=== PATIENT | male | born 1970 | race Caucasian/White ===

== ENCOUNTER → 2017-11-23 | Outpatient (REF) | payer BC | LOC: M CARPUL 07:22 | DX: Z02.89 Encounter for other administrative examinations (principal) ==

== ENCOUNTER 2018-01-18 17:22 | Emergency (ER) | payer BC ==
[2018-01-18] MEDS: KETOROLAC 30 MG/ML VIAL (J1885) IV (17:45)
[2018-01-18] MEDS: ONDANSETRON 4MG/2ML VIAL (J2405) IV (17:48)
[2018-01-18 18:02] LABS: BASO # 0.1 10^3/uL (0.0-0.2); BASO % 1.3 % (0.0-1.0); EOS # 0.1 10^3/uL (0.0-0.50); EOS % 0.6 % (0.0-3.0); HEMOGLOBIN 16.7 g/dl (13.5-17.5); IMMATURE GRANULOCYTE % 0.3 % (0-3.0); LYMPH % 20.2 % (24.0-44.0); MEAN CORPUSCULAR HEMOGLOBIN 29.2 pg (27.0-33.0); MEAN CORPUSCULAR HGB CONC 34.8 g/dl (32.0-36.5); MEAN CORPUSCULAR VOLUME 83.9 fl (80.0-96.0); MONO # 0.5 10^3/uL (0.0-0.8); MONO % 5.2 % (0.0-5.0); NEUTROPHILS # 7.2 10^3/uL (1.8-7.7); NEUTROPHILS % 72.4 % (36.0-66.0); PLATELET COUNT, AUTOMATED 270 10^3/uL (150-450); RED BLOOD COUNT 5.72 10^6/uL (4.30-6.10); RED CELL DISTRIBUTION WIDTH 12.5 % (11.5-14.5); WHITE BLOOD COUNT 9.9 10^3/uL (4.0-10.0)
[2018-01-18 18:26] LABS: ANION GAP 8 MEQ/L (8-16); BLOOD UREA NITROGEN 16 MG/DL (7-18); C REACTIVE PROTEIN QUANTITATIV < 0.30 MG/DL (0.00-0.30); CALCIUM LEVEL 9.1 MG/DL (8.5-10.1); CARBON DIOXIDE LEVEL 26 MEQ/L (21-32); CHLORIDE LEVEL 105 MEQ/L (98-107); GLOMERULAR FILTRATION RATE > 60.0 (>60); GLUCOSE, FASTING 145 MG/DL (70-100); POTASSIUM SERUM 4.2 MEQ/L (3.5-5.1); SODIUM LEVEL 139 MEQ/L (136-145)
[2018-01-18 18:29] LABS: AMORPHOUS SEDIMENT RFX SMALL (NEGATIVE); KETONE, URINE AUTO RFX NEGATIVE (NEGATIVE); LEUKOCYTE ESTERASE UR AUTO RFX NEGATIVE (NEGATIVE); MUCUS, URINE RFX SMALL (NEGATIVE); NITRITE, URINE AUTO RFX NEGATIVE (NEGATIVE); RBC, URINE AUTO RFX TNTC /HPF (0-3); SPECIFIC GRAVITY UR AUTO RFX 1.024 (1.002-1.035); SQUAM EPITHELIAL CELL UR AURFX 1 /HPF (0-6); WBC, URINE AUTO RFX 1 /HPF (0-3)
[2018-01-18] MEDS: PERCOCET 5MG/325MG TAB PO (19:12)
== END 2018-01-18 19:20 | disposition home or self-care (01) ==
LOC: M ED 17:22
DX: N20.1 Calculus of ureter (principal); N13.2 Hydronephrosis with renal and ureteral calculous obstruction; R10.9 Unspecified abdominal pain; R11.2 Nausea with vomiting, unspecified; I10 Essential (primary) hypertension; Z87.442 Personal history of urinary calculi; F17.200 Nicotine dependence, unspecified, uncomplicated; Z79.899 Other long term (current) drug therapy
CPT/HCPCS: J2405

== ENCOUNTER → 2018-12-06 | Outpatient (REF) ==
[~2018-12-06] MED LIST: FLOM0.4C39 PO; KETO10TAB PO; LISI40TA PO; METO1TAB87 PO; PERC5TAB12 PO; ZOFR4TAB14 PO
--- NOTE | 2018-12-06 14:37 | PFTRPT ---
Height: 70.00 Inches Weight: 200.00 Lbs BSA: 2.09 Diagnosis: [employer]EE [employer] DATE OF PROCEDURE: 12/06/2018 ORDERED BY: Pamela Foss Spirometry: Study of excellent technical quality. Forced vital capacity normal. FEV1 in proportion. Obstructive index is, therefore, normal. Flow Volume Loop: Expiratory limb of the flow volume loop is normal. Lung Volumes: Total lung capacity normal. Residual volume is generally in proportion. Diffusing Capacity: Diffusing capacity mildly reduced but is appropriate for alveolar volume. Hemoglobin: No hemoglobin available for correction. Airway Mechanics: Airway resistance is normal. IMPRESSION: Mild diffusing capacity impairment requires clinical correlation. MTDD
== END ==
LOC: M CARPUL 08:40 → EDSTATUS 09:00
PROVIDERS: ATTEND Nurse Practitioner Adult Health
DX: Z02.89 Encounter for other administrative examinations (principal)

== ENCOUNTER 2019-02-16 01:30 | Day surgery (SDC) | payer BC ==
[~2019-02-16] VITALS: Ht 177.8 cm; Wt 92.3 kg
[2019-02-16 02:06] LABS: BASO # 0.1 10^3/uL (0.0-0.2); BASO % 1.1 % (0.0-1.0); EOS # 0.2 10^3/uL (0.0-0.50); HEMATOCRIT 48.4 % (42.0-52.0); HEMOGLOBIN 16.3 g/dl (13.5-17.5); LYMPH # 2.2 10^3/uL (1.5-4.5); LYMPH % 26.1 % (24.0-44.0); MEAN CORPUSCULAR HEMOGLOBIN 28.9 pg (27.0-33.0); MEAN CORPUSCULAR HGB CONC 33.7 g/dl (32.0-36.5); MEAN CORPUSCULAR VOLUME 85.8 fl (80.0-96.0); MONO # 0.6 10^3/uL (0.0-0.8); MONO % 6.5 % (0.0-5.0); NEUTROPHILS # 5.4 10^3/uL (1.8-7.7); NEUTROPHILS % 63.9 % (36.0-66.0); PLATELET COUNT, AUTOMATED 244 10^3/uL (150-450); RED BLOOD COUNT 5.64 10^6/uL (4.30-6.10); WHITE BLOOD COUNT 8.5 10^3/uL (4.0-10.0)
[2019-02-16] MEDS ORDERED: NS 1,000 ML IV ONE (02:15)
[2019-02-16] MEDS ORDERED: METOCLOPRAMIDE INJ 10MG/2ML VIAL (J2765) IV ONE (02:15)
[2019-02-16] MEDS ORDERED: TAMSULOSIN 0.4 MG CAP PO ONE (02:15)
[2019-02-16] MEDS ORDERED: KETOROLAC 30 MG/ML VIAL (J1885) IV ONE (02:15)
[2019-02-16 02:24] LABS: BLOOD UREA NITROGEN 12 MG/DL (7-18); CALCIUM LEVEL 8.5 MG/DL (8.5-10.1); CARBON DIOXIDE LEVEL 27 MEQ/L (21-32); CHLORIDE LEVEL 104 MEQ/L (98-107); CREATININE FOR GFR 1.07 MG/DL (0.70-1.30); GLOMERULAR FILTRATION RATE > 60.0 (>60); GLUCOSE, FASTING 175 MG/DL (70-100); SODIUM LEVEL 138 MEQ/L (136-145)
--- NOTE | 2019-02-16 02:54 | REPVR ---
EXAM: CT Abdomen and Pelvis Without Contrast EXAM DATE/TIME: 02/16/2019 1:44 AM CLINICAL HISTORY: 48 years old, male; Abdominal pain; Flank; Patient HX: Left side pain; Additional info: Flank pain/hx kidney stones TECHNIQUE: Imaging protocol: Axial computed tomography images of the abdomen and pelvis without contrast. Coronal and sagittal reformatted images were created and reviewed. Radiation optimization: All CT scans at this facility use at least one of these dose optimization techniques: automated exposure control; mA and/or kV adjustment per patient size (includes targeted exams where dose is matched to clinical indication); or iterative reconstruction. COMPARISON: CT ABD PELVIS W/O CONTRAST 01/18/2018 5:45 PM FINDINGS: Lungs: No suspicious mass or airspace process in the visualized lung bases. ABDOMEN: Liver: Noncontrast liver shows no obvious lesion. Gallbladder and bile ducts: Gallbladder is present and shows no evidence of gallstone. Pancreas: Noncontrast pancreas shows no obvious mass or adjacent fluid. Spleen: Noncontrast spleen shows no obvious focal deformity. Adrenals: Adrenal glands are normal in appearance. Kidneys and ureters: Kidneys demonstrate nonobstructive calculi. Left kidney demonstrates perinephric stranding and moderate hydronephrosis secondary to a large, 8 x 5 mm left UPJ stone proximally. Distal to this, the left ureter is normal in caliber. Stomach and bowel: No evidence of small bowel obstruction. No evidence of acute diverticulitis. Appendix: Normal caliber appendix is identified, with no adjacent inflammation. PELVIS: Bladder: Bladder appears normal. Reproductive: Unremarkable as visualized. ABDOMEN and PELVIS: Intraperitoneal space: Limited evaluation without enteric or IV contrast. No pneumoperitoneum. No abnormal pelvic mass. Bones/joints: Bony structures show no acute fracture or destructive process. Soft tissues: Unremarkable. Vasculature: Atherosclerotic change present in the aorta, without aneurysm. Lymph nodes: No enlarged lymph nodes. IMPRESSION: 1. Moderate left hydronephrosis secondary to a large 8 x 5 mm proximal left ureter stone at the left UPJ level. 2. Bilateral nonobstructive renal calculi Electronically signed by: Micky Rankin On 02/16/2019 02:53:24 AM
[2019-02-16] MEDS ORDERED: DILUENT IV ONE (04:15)
[2019-02-16] MEDS ORDERED: NACL IV ONE (04:15)
[2019-02-16] MEDS ORDERED: KETAMINE IV ONE (04:15)
[2019-02-16] MEDS ORDERED: CONRAY-60 60% 50ML VIAL (Q9961) As Ordered ONE (08:24)
--- NOTE | 2019-02-16 09:21 | SMCUROLCON ---
Urology Consultation General Date of Consultation 02/16/19 Reason For Consultation This patient is seen for Flank Pain. History of Present Illness This is a 48 y/o M w/ a PMH significant for HTN and kidney stones, presenting to the ER early this morning w/ acute onset left flank and abd pain. The patient n oted that this started yesterday evening and became increasingly worse. He has had nausea and vomiting but denies fevers or chills. A noncontrast CT A/P was obtained in the ER and was notable for an 8mm obstructing left UPJ stone as well as additional b/l nonobstructing stones. The ER has had difficulty controlling his pain. He denies dysuria or hematuria. His WBC count is normal and he has o nly 1 WBC/hpf on his UA. Past Medical History Medical History kidney stones, HTN Surgical Hstory ESWL approximately 10 years ago Medications Current Medications Current Medications Home Med (Med Rec Complete!) ASDIRECTED XX ; Start 02/16/19 at 03:45; Stop 02/16/19 at 03:46; Status DC Allergies Allergies: Coded Allergies: No Known Allergies (Unverified , 02/16/19) Review of Systems Constitutional: Denies: Fever, Chills, Sweats, Weakness, Malaise Skin: Denies: Rash, Lesions, Breakdown, Nail Changes Pulmonary: Denies: Dyspnea, Cough Cardiovascular: Denies Chest Pain, Denies Palpitations Gastrointestinal: Reports: Nausea, Vomiting, Abdominal Pain (LLQ) Genitourinary: Denies: Dysuria, Frequency, Incontinence, Hematuria Musculoskeletal: Reports: Back Pain (left flank pain) Neurological: Denies: Weakness, Numbness, Incoordination, Change in Speech Psych: Reports: Mood Normal Physical Examination General Exam: Alert, Cooperative, No Acute Distress Chest Exam: Clear to auscultation Heart Exam: Rate Normal Abdomen Exam: Soft, Tenderness (LLQ) Skin Exam: Nl turgor and temperature Neuro Exam: Normal Speech Psych Exam: Mental status NL, Mood NL Vital Signs/I&O Vital Signs Date Time Temp Pulse Resp B/P (MAP) Pulse Ox O2 Delivery O2 Flow Rate FiO2 02/16/19 08:22 97.5 92 19 173/94 (120) 97 Room Air I&O- Last 24 Hours up to 6 AM 02/16/19 06:00 Intake Total 1018.45 ml Balance 1018.45 ml Laboratory Data 24H Labs Laboratory Tests 2 02/16/19 01:49: Immature Granulocyte % (Auto) 0.4, White Blood Count 8.5, Red Blood Count 5.64, Hemoglobin 16.3, Hematocrit 48.4, Mean Corpuscular Volume 85.8, Mean Corpuscular Hemoglobin 28.9, Mean Corpuscular Hemoglobin Concent 33.7, Red Cell Distribution Width 12.9, Platelet Count 244, Neutrophils (%) (Auto) 63.9, Lymphocytes (%) (Auto) 26.1, Monocytes (%) (Auto) 6.5H, Eosinophils (%) (Auto) 2.0, Basophils (%) (Auto) 1.1H, Neutrophils # (Auto) 5.4, Lymphocytes # (Auto) 2.2, Monocytes # (Auto) 0.6, Eosinophils # (Auto) 0.2, Basophils # (Auto) 0.1, Nucleated Red Blood Cells % (auto) 0.0, Urine Color YELLOW, Urine Appearance CLEAR, Urine pH 6.0, Urine Specific [place] 1.019, Urine Protein 1+H, Urine Glucose (UA) NEGATIVE, Urine Ketones NEGATIVE, Urine Blood 2+H, Urine Nitrite NEGATIVE, Urine Bilirubin NEGATIVE, Urine Urobilinogen 2.0H, Urine Leukocyte Esterase NEGATIVE, Urine WBC (Auto) 1, Urine RBC (Auto) 22H, Urine Hyaline Casts (Auto) 0, Urine Bacteria (Auto) NEGATIVE, Urine Squamous Epithelial Cells 0, Urine Mucus (Auto) SMALL, Urine Sperm (Auto) , Anion Gap 7L, Glomerular Filtration Rate > 60.0, Blood Urea Nitrogen 12, Creatinine 1.07, Sodium Level 138, Potassium Level 4.0, Chloride Level 104, Carbon Dioxide Level 27, Calcium Level 8.5 CBC/BMP Laboratory Tests 02/16/19 01:49 Red Blood Count 5.64, Mean Corpuscular Volume 85.8, Mean Corpuscular Hemoglobin 28.9, Mean Corpuscular Hemoglobin Concent 33.7, Red Cell Distribution Width 12.9, Neutrophils (%) (Auto) 63.9, Lymphocytes (%) (Auto) 26.1, Monocytes (%) (Auto) 6.5 H, Eosinophils (%) (Auto) 2.0, Basophils (%) (Auto) 1.1 H, Neutrophils # (Auto) 5.4, Lymphocytes # (Auto) 2.2, Monocytes # (Auto) 0.6, Eosinophils # (Auto) 0.2, Basophils # (Auto) 0.1, Calcium Level 8.5 Assessment This is a 48 y/o M w/ an 8mm obstructing left UPJ stone. Given the difficulty c ontrolling his pain I recommended that we take him to the OR today for cystoscopy, left ureteroscopy w/ laser lithotripsy, and left ureteral stent placement. After a discussion of the risks and benefits of the procedure, informed consent was signed. Plan - informed consent signed for cystoscopy, left ureteroscopy w/ laser lithotripsy, and left ureteral stent placement - NPO - 2g ancef IV OCOR - likely discharge home after the procedure assuming his pain is better control led DAVID CANO MD February 16, 2019 09:21
[2019-02-16] MEDS ORDERED: ceFAZolin 2 GM/D5W 50 ML IV BAG (J0690 PER 500MG) As Ordered ONE (09:31)
[2019-02-16] MEDS ORDERED: MIDAZOLAM INJ 2 MG/2 ML VIAL (J2250) As Ordered ONE (09:51)
[2019-02-16] MEDS ORDERED: ONDANSETRON 4MG/2ML VIAL (J2405) As Ordered ONE ×2 (09:51→11:11)
[2019-02-16] MEDS ORDERED: LIDOCAINE 2% INJ 100 MG/5 ML SDV (FOR ANES.) As Ordered ONE (09:51)
[2019-02-16] MEDS ORDERED: PROPOFOL 200 MG/20 ML VIAL As Ordered ONE (09:51)
[2019-02-16] MEDS ORDERED: dexameTHASONE 4 MG/ML 1ML VIAL (J1100) As Ordered ONE (09:51)
[2019-02-16] MEDS ORDERED: ROCURONIUM BROMIDE 50 MG/5 ML VIAL As Ordered ONE (09:51)
[2019-02-16] MEDS ORDERED: fentaNYL 100 MCG/2 ML INJECTION (J3010) As Ordered ONE (09:51)
[2019-02-16] MEDS ORDERED: GLYCOPYRROLATE INJ 0.2 MG/ML 2 ML VIAL As Ordered ONE (10:17)
[2019-02-16] MEDS ORDERED: NEOSTIGMINE 10 MG/10 ML VIAL (J2710) As Ordered ONE (10:17)
[2019-02-16] MEDS ORDERED: ALBUTEROL SULFATE 2.5 MG/0.5 ML INH NEB SOLN As Ordered ONE (11:11)
[2019-02-16] MEDS ORDERED: fentaNYL 100 MCG/2 ML INJECTION (J3010) IV PRN (11:15)
[2019-02-16] MEDS ORDERED: ALBUTEROL SULFATE 2.5 MG/0.5 ML INH NEB SOLN INH ONE (11:15)
[2019-02-16] MEDS ORDERED: ONDANSETRON 4MG/2ML VIAL (J2405) IV PRN (11:15)
[2019-02-16] MEDS ORDERED: LR 1,000 ML IV SCH (11:15)
[2019-02-16] MEDS ORDERED: PERCOCET 5MG/325MG TAB PO PRN ×2 (11:15)
--- NOTE | 2019-02-16 11:18 | REP ---
Retrograde ureterogram: Three views. History: Stent placement. 12 seconds of fluoroscopy time is reported. Findings: A sequence of three last image hold fluoroscopically obtained spot radiographs of the abdomen document ureteral cannulation, contrast injection, and double pigtail stent placement. No laterality markers are visible. Electronically Signed by Neeraj Ochoa MD 02/16/2019 12:36 P
--- NOTE | 2019-02-16 11:36 | RO ---
DATE OF PROCEDURE: 02/16/2019 PREPROCEDURE DIAGNOSIS: Left kidney stones. POSTPROCEDURE DIAGNOSIS: Left kidney stones. PROCEDURE: Cystoscopy, left ureteroscopy with laser lithotripsy and basket extraction of stones, left retrograde pyelogram with intraoperative interpretation of images, left ureteral stent placement. SURGEON: Dr. Otf Tompkins INDUSTRIAL BOILERMAKER: None. ANESTHESIA: General. OPERATIVE INDICATIONS: This is a 48-year-old male who presented to the emergency room with severe left flank pain and was found to have an obstructing 8 mm left ureteropelvic junction stone as well as smaller stone inside the left kidney. He was brought to the operating room today for the above listed procedures. DESCRIPTION OF PROCEDURE: The patient was brought to the operating room where general anesthesia was induced. Prophylactic antibiotics were infused. He was then placed in dorsal lithotomy position and prepped and draped in the usual sterile fashion. A rigid cystoscope was then inserted into the urethral meatus and advanced into the bladder. A guidewire was advanced up the left collecting system. I then advanced the ureteral access sheath over the wire and then went up the access sheath with a flexible ureteroscope. The left kidney was thoroughly examined. Of note, the 8 mm stone was seen at this point pushed into the renal pelvis. He also had a small stone in the left kidney. The 8 mm stone was then fragmented into smaller pieces using a 272 micron laser fiber. At this point, all fragments were removed using a basket. Once done removing all the fragments, there were no fragments remaining except for very tiny stone debris that should pass without any difficulty. A retrograde pyelogram was then performed and was notable for moderate left hydronephrosis and no extravasation. I then withdrew the ureteroscope along with access sheath and no additional stones were seen within the ureter. I then utilized the wire to advance a 6 Armenian x 22-32 cm JJ ureteral stent up into the left collecting system. The wire was then removed and there were adequate curls of the stent in the left renal pelvis and in the bladder. The bladder was then emptied of all fluid and this marked the conclusion of the procedure. The patient was then taken out of the dorsal lithotomy position, awakened from anesthesia and transported to the recovery room in stable condition. Estimated blood loss: 5 mL. Complications: None. Specimen: Kidney stone fragments. Plan: The patient will followup in the clinic in a few weeks for possible stent removal of note, the patient also had an approximate 5-6 mm nonobstructing right kidney stone and he might benefit from an extracorporeal shockwave lithotripsy for that. We can discuss that possible procedure when he follows up in the clinic. VITA
[2019-02-16] MEDS ORDERED: LABETALOL HCL 100 MG/20 ML VIAL As Ordered ONE (11:39)
[2019-02-16] MEDS: LABETALOL HCL 100 MG/20 ML VIAL IV PRN ×5 (11:40→12:10)
[2019-02-16] MEDS ORDERED: METOCLOPRAMIDE INJ 10MG/2ML VIAL (J2765) IV PRN (11:45)
[2019-02-16] MEDS ORDERED: PROMETHAZINE INJ 25 MG/ML VIAL (J2550) As Ordered ONE (12:05)
[2019-02-16] MEDS ORDERED: PROMETHAZINE INJ 25 MG/ML VIAL (J2550) IV ONE (12:30)
[2019-02-16] MEDS ORDERED: METOPROLOL TART 25 MG TABLET PO ONE (12:30)
[2019-02-16] MEDS ORDERED: LISINOPRIL 40 MG TAB PO ONE (12:30)
[2019-02-16 13:32] VITALS: BP 139/76
[2019-02-22 14:11] LABS: CA Oxalate Dihy 25 % (.); COMMENT Note: (.); Ca Ox Monohydrate 45 % (.)
== END 2019-02-16 14:10 | disposition home or self-care (01) ==
LOC: M ED 01:30 → M SDC 09:12
PROVIDERS: ATTEND Urology
DX: N20.0 Calculus of kidney (principal); N20.1 Calculus of ureter; I10 Essential (primary) hypertension; F17.210 Nicotine dependence, cigarettes, uncomplicated; Z79.899 Other long term (current) drug therapy
CPT/HCPCS: 52356; 74176; 74420; 80048; 81001; 82360; 85025; 88300; 96361; 96375; 99285; C1769; C1894; C2617; J0690; J1100; J1885; J2250; J2405; J2710; J2765; J3010; Q9961

== ENCOUNTER 2019-05-19 05:50 | Emergency (ER) | payer BC ==
[~2019-05-19] VITALS: Ht 177.8 cm; Wt 93.2 kg
[~2019-05-19 05:50] MED LIST changes: +ADVI100T PO; +DRIS50003 PO; +LOPR1TAB6 PO
[2019-05-19] MEDS ORDERED: NS 1,000 ML IV ONE (06:15)
[2019-05-19] MEDS ORDERED: ONDANSETRON 4MG/2ML VIAL (J2405) IV ONE (06:30)
[2019-05-19] MEDS ORDERED: KETOROLAC 30 MG/ML VIAL (J1885) IV ONE (06:30)
[2019-05-19 06:35] LABS: BASO # 0.1 10^3/uL (0.0-0.2); BASO % 0.9 % (0.0-1.0); EOS # 0.1 10^3/uL (0.0-0.50); EOS % 0.8 % (0.0-3.0); HEMATOCRIT 48.6 % (42.0-52.0); HEMOGLOBIN 16.8 g/dl (13.5-17.5); LYMPH # 2.2 10^3/uL (1.5-4.5); LYMPH % 21.4 % (24.0-44.0); MEAN CORPUSCULAR HEMOGLOBIN 29.8 pg (27.0-33.0); MEAN CORPUSCULAR HGB CONC 34.6 g/dl (32.0-36.5); MEAN CORPUSCULAR VOLUME 86.3 fl (80.0-96.0); MONO # 0.6 10^3/uL (0.0-0.8); MONO % 6.1 % (0.0-5.0); NEUTROPHILS # 7.3 10^3/uL (1.8-7.7); NEUTROPHILS % 70.5 % (36.0-66.0); PLATELET COUNT, AUTOMATED 252 10^3/uL (150-450); RED BLOOD COUNT 5.63 10^6/uL (4.30-6.10); WHITE BLOOD COUNT 10.3 10^3/uL (4.0-10.0)
[2019-05-19 07:11] LABS: ALBUMIN 3.9 GM/DL (3.2-5.2); ALT/SGPT 32 U/L (12-78); AMYLASE 39 U/L (25-115); BILIRUBIN,TOTAL 0.8 MG/DL (0.2-1.0); BLOOD UREA NITROGEN 16 MG/DL (7-18); CALCIUM LEVEL 9.1 MG/DL (8.5-10.1); CARBON DIOXIDE LEVEL 25 MEQ/L (21-32); CHLORIDE LEVEL 104 MEQ/L (98-107); CREATININE FOR GFR 1.03 MG/DL (0.70-1.30); GLOMERULAR FILTRATION RATE > 60.0 (>60); GLUCOSE, FASTING 160 MG/DL (70-100); LIPASE 123 U/L (73-393); POTASSIUM SERUM 4.2 MEQ/L (3.5-5.1); SODIUM LEVEL 138 MEQ/L (136-145)
[2019-05-19 08:11] LABS: APPEARANCE, URINE CLEAR (CLEAR); BACTERIA, URINE AUTO NEGATIVE (NEGATIVE); BILIRUBIN, URINE AUTO NEGATIVE (NEGATIVE); BLOOD, URINE BLOOD 1+ (NEGATIVE); COLOR, URINE YELLOW (YELLOW); GLUCOSE, URINE (UA) AUTO NEGATIVE (NEGATIVE); KETONE, URINE AUTO NEGATIVE (NEGATIVE); LEUKOCYTE ESTERASE, URINE AUTO NEGATIVE (NEGATIVE); MUCUS, URINE SMALL (NEGATIVE); NITRITE, URINE AUTO NEGATIVE (NEGATIVE); PROTEIN, URINE AUTO NEGATIVE (NEGATIVE); RBC, URINE AUTO 10 /HPF (0-3); SPECIFIC GRAVITY URINE AUTO 1.016 (1.002-1.035); SQUAMOUS EPITHELIAL CELL UR AU 0 /HPF (0-6); UROBILINOGEN, URINE AUTO 0.2 mg/dL (0.0-2.0); WBC, URINE AUTO 2 /HPF (0-3)
[2019-05-19] MEDS ORDERED: MORPHINE 2 MG/ML 1ML SYRINGE (J2270) IV ONE (09:15)
--- NOTE | 2019-05-19 10:44 | REP ---
CT of the abdomen pelvis without IV and oral contrast for renal calculus: Comparison is 02/16/2019. The patient complains of right lower quadrant pain. There is a 4 ml calculus in the urinary bladder posterolaterally on the right as an interval change. There is no right hydronephrosis or hydroureter. This calculus may have recently passed into the bladder. There are at least four nonobstructive right renal calculi measuring up to 6 mm. There is left hydronephrosis and hydroureter, perinephric stranding. However, there is no left ureteral calculus. The previous left ureteral calculus is no longer identified. There is a nonobstructive left renal calculus measuring 3 mm. The persisting hydronephrosis and hydroureter may be from mucosal edema or fibrosis of the distal ureter from previous calculus disease. There is a small left pleural effusion. There is a small focal zone of atelectasis in the right lower lobe. The hepatic parenchyma, gallbladder, pancreas, spleen, adrenals, abdominal aorta, bowel and mesentery are unremarkable. Pelvis: The appendix is unremarkable. The pelvic bowel loops are unremarkable. There is no ascites or adenopathy. Impression: There is a calculus in the bladder posterolaterally on the right, possibly recently passed into the bladder. There is no right hydronephrosis or hydroureter. There is persisting left hydronephrosis and hydroureter without a left ureteral calculus. This may be from edema or fibrosis of the distal left ureter, possibly from previous calculus disease. Small left pleural effusion. Small focal zone of atelectasis in the right lower lobe. Electronically Signed by Ubaldo Hicks MD 05/19/2019 10:36 A
[2019-05-19 11:18] VITALS: BP 178/107
--- NOTE | 2019-05-19 21:22 | ECGEPIP ---
[facility] - ED Test Date: 2019-05-19 Pat Name: BANG JOHNSON Department: Room: - Gender: Male Equipment Maintenance Supervisor: sara : 1970 Requested By: Annelise Mohamud RD MECHANICAL ENGINEER Order Number: [id number] Reading MD: Kathia Jaquez Measurements Intervals [place] Rate: 74 P: -10 MS: 195 QRS: 5 QRSD: 108 T: 35 QT: 369 QTc: 411 Interpretive Statements SINUS RHYTHM INFERIOR INFARCT, AGE INDETERMINATE NO PRIOR Electronically Signed on 05-19-2019 21:22:06 EDT by Kathia Jaquez
--- NOTE | 2019-05-22 07:23 | ED PDOC ---
Post-Departure Follow-Up akash pereira faxed formal report of ct abd/p for fu Yuliya Pelaez MD May 22, 2019 07:23
--- NOTE | 2019-06-07 13:44 | ED PDOC ---
Post-Departure Follow-Up certiifed letter sent to pt regarding message from pcp office. Per artificial cherry maker per office "if pt wants to follow up he needs to make an appt and reestablish w us." please let pt know he needs to fu . pt needs fu for ct abd/p film he had during ed visit. Yuliya Wilson MD Jun 07, 2019 13:44
== END 2019-05-19 11:34 | disposition home or self-care (01) ==
LOC: M ED 05:50
DX: N20.1 Calculus of ureter (principal); N13.39 Other hydronephrosis; N13.4 Hydroureter; R11.2 Nausea with vomiting, unspecified; K59.00 Constipation, unspecified; Z87.442 Personal history of urinary calculi; F17.200 Nicotine dependence, unspecified, uncomplicated; Z79.899 Other long term (current) drug therapy
CPT/HCPCS: 74176; 80053; 81001; 82150; 83690; 85025; 85379; 93005; 96374; 96375; 99284; J1885; J2270; J2405

== ENCOUNTER → 2019-12-08 | Outpatient (REF) ==
--- NOTE | 2019-12-08 15:03 | PFTRPT ---
Site: [facility], [address] [place] [address], [id number] ID: [id number] Name: BANG JOHNSON Visit Date: 12/08/2019 Second ID: [id number] Referring Doctor: Noemí Foss Reviewing Doctor: Agustin Granda MD Automotive Metalsmith: Marly ANTHONY RRT Age: 49 : 1970 Sex: Male Race: Height: 70.00 Inches Weight: 206.00 Lbs BSA: 2.11 Order IDs: [id number] Requested Test(s): <RESP-PFT.DLCO> Diagnosis: [employer]EE [employer] test meet the ATS standards for acceptability and repeatability. Review Status: Not Reviewed Pre-Bronch Post-Bronch Pred Actual %Pred Actual %Chng SPIROMETRY FVC (L) 5.06 3.88 76 FEV1 (L) 3.92 3.07 78 FEV1/FVC (%) 78 79 101 FEF 25% (L/sec) 7.90 6.72 85 FEF 50% (L/sec) 5.01 4.13 82 FEF 75% (L/sec) 1.70 0.98 57 FEF 25-75% (L/sec) 3.47 2.92 84 FEF Max (L/sec) 9.82 7.19 73 FIVC (L) 4.01 FIF 50% (L/sec) 4.98 4.40 88 FIF Max (L/sec) 4.54 MVV (L/min) 153 130 85 Expiratory Time (sec) 7.12 Back Extrap Vol (L) 0.23 Time To FEFmax (sec) 0.179 LUNG VOLUMES SVC (L) 4.92 4.10 83 IC (L) 3.41 3.05 89 ERV (L) 1.51 1.05 69 TGV (L) 3.55 3.67 103 RV (Pleth) (L) 2.04 2.62 128 TLC (Pleth) (L) 6.96 6.72 96 RV/TLC (Pleth) (%) 30 39 130 DIFFUSION DLCOunc (ml/min/mmHg) 30.69 28.28 92 DL/VA (ml/min/mmHg/L) 4.41 4.50 102 VA (L) 6.96 6.28 90 BHT (sec) 9.58 IVC (L) 4.10 TLC (SB) (L) 6.43 AIRWAYS RESISTANCE Raw (cmH2O/L/s) 1.45 1.05 72 Gaw (L/s/cmH2O) 1.03 0.96 93 sRaw (cmH2O*s) 4.76 4.12 86 sGaw (1/cmH2O*s) 0.20 0.24 121
== END ==
LOC: M CARPUL 14:42 → EDSTATUS 15:00
PROVIDERS: ATTEND Nurse Practitioner Adult Health
DX: Z02.89 Encounter for other administrative examinations (principal)

== ENCOUNTER 2020-08-10 03:26 | Emergency (ER) | payer BC ==
[~2020-08-10] VITALS: Ht 177.8 cm; Wt 93.3 kg
[2020-08-10 05:09] LABS: BASO # 0.1 10^3/uL (0.0-0.2); BASO % 0.8 % (0.0-1.0); EOS % 0.3 % (0.0-3.0); HEMATOCRIT 48.5 % (42.0-52.0); HEMOGLOBIN 15.8 g/dl (13.5-17.5); LYMPH # 1.1 10^3/uL (1.5-5.0); LYMPH % 10.5 % (24.0-44.0); MEAN CORPUSCULAR HEMOGLOBIN 27.9 pg (27.0-33.0); MEAN CORPUSCULAR HGB CONC 32.6 g/dl (32.0-36.5); MEAN CORPUSCULAR VOLUME 85.5 fl (80.0-96.0); MONO # 0.6 10^3/uL (0.0-0.8); MONO % 5.8 % (0.0-5.0); NEUTROPHILS # 8.9 10^3/uL (1.5-8.5); NEUTROPHILS % 81.5 % (36.0-66.0); PLATELET COUNT, AUTOMATED 272 10^3/uL (150-450); RED BLOOD COUNT 5.67 10^6/uL (4.30-6.10); WHITE BLOOD COUNT 10.9 10^3/uL (4.0-10.0)
[2020-08-10 05:39] LABS: ALBUMIN 3.9 GM/DL (3.2-5.2); BILIRUBIN,DIRECT 0.2 MG/DL (0.0-0.2); BILIRUBIN,TOTAL 0.5 MG/DL (0.2-1.0); TOTAL PROTEIN 7.1 GM/DL (6.4-8.2)
[2020-08-10] MEDS ORDERED: KETOROLAC 30 MG/ML 1ML VIAL IV ONE (06:00)
[2020-08-10] MEDS ORDERED: ONDANSETRON 4MG/2ML VIAL IV ONE (06:00)
[2020-08-10] MEDS ORDERED: NS 1,000 ML IV ONE (06:00)
--- NOTE | 2020-08-10 06:24 | REPVR ---
PROCEDURE INFORMATION: Exam: CT Abdomen And Pelvis Without Contrast Exam date and time: 08/10/2020 5:56 AM Age: 49 years old Clinical indication: Abdominal pain; Flank; Left; Additional info: Left flank pain, HX of stones TECHNIQUE: Imaging protocol: Computed tomography of the abdomen and pelvis without contrast. Radiation optimization: All CT scans at this facility use at least one of these dose optimization techniques: automated exposure control; mA and/or kV adjustment per patient size (includes targeted exams where dose is matched to clinical indication); or iterative reconstruction. COMPARISON: CT ABD PELVIS W/O CONTRAST 05/19/2019 10:15 AM FINDINGS: Liver: Normal. No mass. Gallbladder and bile ducts: Normal. No calcified stones. No ductal dilation. Pancreas: Normal. No ductal dilation. Spleen: Normal. No splenomegaly. Adrenal glands: Normal. No mass. Kidneys and ureters: There are multiple right renal cysts the largest measuring 1.9 centimetres. There are right renal stones the largest measuring 7 mm. There is a 6 mm stone in the right UPJ but without hydronephrosis. There is a 1.8 cm left UPJ obstructing stone with moderate proximal hydronephrosis. There is a large left lower renal pole stone measuring 2.1 centimetres. There is left perinephric stranding and edema. Stomach and bowel: Unremarkable. No obstruction. No mucosal thickening. Appendix: No evidence of appendicitis. Intraperitoneal space: Unremarkable. No free air. No significant fluid collection. Vasculature: There is mild aortic and iliac mural calcifications. Lymph nodes: Unremarkable. No enlarged lymph nodes. Urinary bladder: Unremarkable as visualized. Reproductive: Unremarkable as visualized. Bones/joints: Unremarkable. No acute fracture. Soft tissues: Unremarkable. IMPRESSION: 1. 1.8 cm left UPJ obstructing stone with moderate proximal hydronephrosis and perinephric edema. Underlying infection cannot be excluded. 2. 6 mm right UPJ stone without proximal hydronephrosis. Bilateral renal stones the largest on the right measures 7 mm in the largest on the left measures 2.1 centimetres. 3. Multiple right renal cysts. COMMENTS: Consistent with the [employer]'s Incidental Findings Committee white paper (J Am Gerber Radiol 2018): Any incidental renal lesion less than 1 cm or classified as too small to characterize, or any incidental cystic renal lesion characterized as simple-appearing, is likely benign. No follow-up imaging is recommended for these lesions per consensus recommendations based on imaging criteria. Electronically signed by: Heri Carey On 08/10/2020 06:24:16 AM
[2020-08-10 06:39] LABS: HEMOGLOBIN A1c 7.5 %
[2020-08-10] MEDS ORDERED: CIPROFLOXACIN 500MG TABLET PO ONE (06:45)
[2020-08-10] MEDS ORDERED: PERCOCET 5MG/325MG TAB PO ONE (06:45)
[2020-08-10] MEDS ORDERED: PERC5TAB12 PO (08:10)
[2020-08-10] MEDS ORDERED: ONDA4TAB6 PO (08:10)
[2020-08-10] MEDS ORDERED: KETO10TAB PO (08:10)
[2020-08-10] MEDS ORDERED: CIPR-249 PO (08:11)
[2020-08-10 08:24] VITALS: BP 172/115
== END 2020-08-10 08:28 | disposition home or self-care (01) ==
LOC: M ED 03:26
DX: N13.2 Hydronephrosis with renal and ureteral calculous obstruction (principal); F17.200 Nicotine dependence, unspecified, uncomplicated; Z79.891 Long term (current) use of opiate analgesic; Z79.899 Other long term (current) drug therapy
CPT/HCPCS: 74176; 80047; 80076; 81001; 83036; 83690; 85025; 96361; 96374; 96375; 99284; J1885; J2405

== ENCOUNTER 2020-08-13 18:02 | Inpatient (IN) | payer BC ==
[~2020-08-13] VITALS: Ht 177.8 cm; Wt 91.6 kg
[~2020-08-13 18:02] MED LIST changes: +CIPR-249 PO; +ONDA4TAB6 PO
[2020-08-13] MEDS ORDERED: ONDANSETRON 4MG/2ML VIAL IV ONE (18:45)
[2020-08-13] MEDS ORDERED: MORPHINE 4 MG/ML 1ML VIAL/SYRINGE (J2270) IV ONE (18:45)
[2020-08-13] MEDS ORDERED: NS 1,000 ML IV ONE (18:45)
[2020-08-13] MEDS ORDERED: KETO10TAB PO (19:26)
[2020-08-13] MEDS ORDERED: OXYC1TAB23 PO (19:26)
[2020-08-13] MEDS ORDERED: CIPR500T3 PO (19:26)
[2020-08-13] MEDS ORDERED: ONDA4TAB6 PO (19:26)
[2020-08-13 19:28] LABS: BASO # 0.1 10^3/uL (0.0-0.2); BASO % 0.6 % (0.0-1.0); EOS # 0.1 10^3/uL (0.0-0.5); EOS % 0.9 % (0.0-3.0); HEMATOCRIT 42.6 % (42.0-52.0); HEMOGLOBIN 14.4 g/dl (13.5-17.5); LYMPH # 1.3 10^3/uL (1.5-5.0); LYMPH % 9.6 % (24.0-44.0); MEAN CORPUSCULAR HEMOGLOBIN 28.8 pg (27.0-33.0); MEAN CORPUSCULAR HGB CONC 33.8 g/dl (32.0-36.5); MEAN CORPUSCULAR VOLUME 85.2 fl (80.0-96.0); MONO # 0.8 10^3/uL (0.0-0.8); MONO % 6.2 % (0.0-5.0); NEUTROPHILS # 10.9 10^3/uL (1.5-8.5); NEUTROPHILS % 82.2 % (36.0-66.0); PLATELET COUNT, AUTOMATED 250 10^3/uL (150-450); WHITE BLOOD COUNT 13.2 10^3/uL (4.0-10.0)
[2020-08-13 19:49] LABS: BILIRUBIN,DIRECT 0.2 MG/DL (0.0-0.2); BILIRUBIN,TOTAL 0.6 MG/DL (0.2-1.0); TOTAL PROTEIN 6.2 GM/DL (6.4-8.2)
--- NOTE | 2020-08-13 21:33 | REPVR ---
PROCEDURE INFORMATION: Exam: CT Abdomen and Pelvis without Contrast Exam date and time: 08/13/20 (9:09pm) Age: 49 years old Clinical indication: Generalized abdominal pain. Bilateral flank pain. History of stones. TECHNIQUE: Imaging protocol: Computed tomography of the abdomen and pelvis without contrast. Radiation optimization: All CT scans at this facility use at least one of these dose optimization techniques: automated exposure control; mA and/or kV adjustment per patient size (includes targeted exams where dose is matched to clinical indication); or iterative reconstruction. COMPARISON: CT ABDOMEN PELVIS of 08/10/20 CT ABDOMEN PELVIS of 02/16/19 FINDINGS: Lower lung watts: Bibasilar hypoventilatory and atelectatic changes. Liver: Normal. No solid mass. Gallbladder and bile ducts: Normal. No calcified stones. No ductal dilatation. Pancreas: Normal. No ductal dilatation. Spleen: Normal. No splenomegaly. Adrenal glands: Normal. No mass. Kidneys and ureters: Ivizfynd-mu-xyem[place] right hydronephrosis now seen (worsened right hydronephrosis). Obstructing stone (4-5 mm size) in the distal 1/3 of the right ureter (Ser. 201 - Image #116) (located 6 cm above the right UV junction). Marked left hydronephrosis again seen. Large stone (1.8 cm size) again seen at the left UP junction. Large left lower renal pole calyceal stone (1.8 cm size) remains 1.8 cm size. No distal left ureteral stone. Poorly defined hypodense lesion (12 mm size) (probable cyst) again seen posterolaterally at the right lower renal pole -- also seen 3 days ago and in January 2019. Stomach and bowel: Unremarkable. No bowel obstruction. No mucosal thickening. Appendix: A normal appendix is visualized. Intraperitoneal space: Unremarkable. No free air. No significant fluid collection. Vasculature: Unremarkable. No abdominal aortic aneurysm. Lymph nodes: Unremarkable. No enlarged lymph nodes. Urinary bladder: Unremarkable as visualized. Reproductive: Moderately enlarged prostate gland. Bones/joints: Unremarkable. No acute fracture. Soft tissues: Unremarkable. IMPRESSION: More severe right-sided right hydronephrosis at this time. The previously noted stone (4-5 mm size) at the right UP junction appears to have passed down the right ureter, now located 6 cm above the right UV junction. Additional right intrarenal stones remain. Poorly defined hypodense lesion (12 mm size) again seen at the right lower renal pole -- probable cyst. This can be confirmed with a non-emergent ultrasound, as felt warranted. Marked left hydronephrosis persists. Large stone (1.8 cm size) again seen at the left UP junction. Additional left lower renal pole calyceal stone (1.8 cm size also). No distal left ureteral stone is seen. No acute bowel pathology. Electronically signed by: Bekah Muniz On 08/13/2020 21:33:50 PM
[2020-08-13] MEDS ORDERED: CIPROFLOXACIN 400 MG in IV 1 EA IV ONE (22:00)
[2020-08-13] MEDS ORDERED: LABETALOL 100MG/20ML VIAL IV STA (22:32)
[2020-08-13] MEDS: MORPHINE 4 MG/ML 1ML VIAL/SYRINGE (J2270) IV PRN (23:04)
[2020-08-13] MEDS ORDERED: ONDANSETRON 4MG/2ML VIAL IV PRN (23:15)
[2020-08-13] MEDS ORDERED: MAALOX 30 ML SUSP *UDC PO PRN (23:15)
[2020-08-13] MEDS ORDERED: MOM 30ML SUSPENSION UDC PO PRN (23:15)
[2020-08-13] MEDS ORDERED: ACETAMINOPHEN TAB 650MG DOSE (2X325MG) PO PRN (23:15)
--- NOTE | 2020-08-13 23:27 | IPNPDOC ---
Text Note Date of Service The patient was seen on 08/13/20. VS,Paule, I+O VS, Fishbone, I+O Laboratory Tests 08/13/20 18:58 Vital Signs Date Time Temp Pulse Resp B/P (MAP) Pulse Ox O2 Delivery O2 Flow Rate FiO2 08/13/20 23:05 80 189/101 08/13/20 23:04 16 08/13/20 22:33 99 Room Air 08/13/20 18:03 97.9 PIYUSH CHISHOLM MD Aug 13, 2020 23:27
--- NOTE | 2020-08-13 23:52 | HPEPDOC ---
[facility] Medical History & Physical Date of Admission Aug 13, 2020 Date of Service: Aug 13, 2020 Primary Care Physician: Karen Buckley PA-C, LAC Attending Physician: PIYUSH CHISHOLM MD History and Physical CHIEF COMPLAINT: Bilateral back pain with anterior radiation. HISTORY OF PRESENT ILLNESS: 49-year-old gentleman history of calcium oxalate stones. CT abdomen and pelvis done in the emergency department was notable for a left- sided 2 cm stone at the UPJ junction with moderate hydronephrosis and another 2 mm stone at the lower pole of the left kidney. He was seen by urology on 08/10/20 where he was consented for cystoscopy, right ureteroscopy with laser lithotripsy and bilateral ureteral stent placement. Patient was given an prescription for percocete which he states made him more nauseas. Reports sudden onset of increasing bilateral back pain and anterior radiation into the groin approximately 1400 today. Patient did take another one of his pain medications which helped to help alleviate the pain somewhat. However, at 5:00 the pain came to managing decided to present to the ER per urology's recommendations. On presentation, the patient was found to be afebrile, heart rate 88, respiration of 18 and maintaining a saturation of 98% on room air. Patient was noted to be hypertensive with a blood pressure of 222/136 (164). Mildly elevated white count of 13.2, H&H and platelets within normal limits. Elevated glucose of 166, BUN/CR of 30/2.4, liver function within normal limits, no lactic acidosis. UA +1+ protein 3+ blood and 20 WBC and TNTC RBC.Patient was given a normal saline bolus. Pain and control with morphine and Zofran respectfully. He was given a single dose of ciprofloxacin. Urology was contacted who will see the patient in consultation. Plan for cystoscopy, right ureteroscopy with laser lithotripsy, b/l ureteral stent placement in am. Patient to be admitted for management of his hypertensive urgency and urology consultation/operative management of his bilateral hyrdonephrosis. PAST MEDICAL HISTORY: Hypertension Elevated blood glucose Nephrolithiasis PAST SURGICAL HISTORY: Lithotripsy, 2010 SOCIAL HISTORY: Patient works in maintenance at [employer]. He is a a current smoker, 1 pack per day. Denies other illicit drug use include ETOH or marijuana. Patient resides with his sister and [id number], mother and one son FAMILY HISTORY: Father: , 54 years old, diabetes, COPD, nephrolithiasis, hypertension, smoker Mother: Alive, diabetes, hypertension Siblings: Brother with hypertension and other unknown circulatory problem, choir and Coumadin ALLERGIES: Tea, hives Known drug allergies REVIEW OF SYSTEMS: CONSTITUTIONAL: Patient denies any recent fever, chills, night sweats. No substantial changes in weight or increasing fatigue HEENT: Reports a headache since presenting to the emergency department but denies any recent headache or pain, denies changes in vision, hearing. No difficulty swallowing. CARDIOVASCULAR: Has any chest pain, palpitations RESPIRATORY: No shortness of breath, cough, wheeze, dyspnea on exertion GASTROINTESTINAL: Patient is reporting bilateral back pain which radiates anteriorly towards his groin. Intermittent nausea without emesis. GENITOURINARY: Anteriorly the radiating back pain as above, reports dark-colored urine though he denies dysuria, or increased frequency/urgency SKIN: Denies any recent skin changes MUSCULOSKELETAL: No muscle aches or pains NEUROLOGICAL: Denies any vertigo, loss of consciousness, new numbness or tingling in his hands or arms or feet. He does describe some chronic left upper extremity paresthesias. HOME MEDICATIONS: Please see below. PHYSICAL EXAMINATION: VITAL SIGNS: Please see below GENERAL APPEARANCE: Patient is interviewed and examined in the emergency department. Patient was found to be resting comfortably on his bed and in no acute distress. Patient does not in discomfort. He is of stated age. He is conversant, able to provide details regarding his recent medical history. HEENT: Normocephalic, atraumatic, face is symmetric, EOMI, sclera nonicteric, no conjunctival injection, mucous members are moist CARDIOVASCULAR: Regular rate and rhythm with a normal S1 and S2 no murmur appreciated LUNGS: Good auscultation bilaterally, good air movement throughout ABDOMEN: Patient is exquisitely tender along his bilateral flanks. CVA tenderness bilaterally. EXTREMITIES: Lower extremities swelling or edema, no calf tenderness, able to move all tremors equally bilaterally NEUROLOGICAL: No dysarthria, dysphasia, cranial nerves II through XII grossly intact PSYCHIATRIC: Affect are appropriate given patient's current medical condition LABORATORY DATA: See below. IMAGING: Abdomen/pelvis CT (08/13/2020): More severe right-sided hydronephrosis. Previous noted stone 4-5 mm in size at the right UP junction appears to have passed down the right ureter, now located 6 cm above the right UP junction. Additional right intrarenal stones remain. Poorly defined hypodense lesion, 12 mm size, again seen in the right lower renal poleprobably cyst. This can be confirmed with a nonemergent ultrasound is felt warranted. Marked left hydronephrosis persists. Large stone (1.8 cm) again noted in the left UP junction. Additional left lower renal pole calyceal stone (1.8 cm) also noted. No distal left ureteral stone is seen. No acute bowel pathology. MICROBIOLOGY: Urine culture (08/13/20): Pending ASSESSMENT: Patient is a 49-year-old male with a limited past medical history which includes hypertension and nephrolithiasis, not currently on any regular medical treatment, who presents to emergency department tonight complaining of increasing bilateral back pain with anterior radiation. She was seen in the outpatient setting by urology on 08/10/20 after being diagnosed left-sided hydronephrosis and bilateral nephrolithiasis. Patient was scheduled for outpatient bilateral stent placement with lithotripsy. Patient was told that should his pain increase it was imperative that he seek emergency department evaluation as this could likely represent bilateral hydronephrosis. Indeed, this was can confirmed on recent imaging. Patient will be admitted for urologic evaluation and management. In addition, patient was also found to have elevated BP and thus also be admitted for evaluation and management of his hypertensive urgency. PLAN: #Hypertensive Urgency -Patient carries a diagnosis of hypertension though he admits he is has not been on treatment. -138/88 in the urology office on 08/10/20. Suspect pain to be contributed factor. -IV labetalol in the ED, pain control with morphine (patient does state that he is unable to tolerate oral Percocet 2/2 to N/V). -PCU/Q4H vitals/Electrolytes in am. -Pt should seek outpatient follow-up for monitoring and management of his hypertension. #Bilateral Hydronephrosis, multiple nephrolithiasis -Urology has been consulted. S/P 1 dose of ciprofloxacin in the ED. -Patient be kept NPO for surgical intervention tomorrow -Pain management with Morphine 3mg IV Q2PRN, Flomax, straining for stones #MARYANNE -2/2 to hydronephrosis -BUN/Cr of 30/2.4, increased from 16/1.0 on 08/10 -S/P 1L NS in ED, will continue gentle hydration in light of HTN CODE STATUS: FULL CODE DVT PROPHYLAXIS: TEDs/Seq DISPOSITION: Anticipate >2 night stay Vital Signs Vital Signs Date Time Temp Pulse Resp B/P (MAP) Pulse Ox O2 Delivery O2 Flow Rate FiO2 08/13/20 20:59 16 Room Air 08/13/20 19:09 83 206/108 (140) 98 08/13/20 18:03 97.9 Laboratory Data Labs 24H Laboratory Tests 2 08/13/20 18:58: Immature Granulocyte % (Auto) 0.5, Neutrophils (%) (Auto) 82.2H, Lymphocytes (%) (Auto) 9.6L, Monocytes (%) (Auto) 6.2H, Eosinophils (%) (Auto) 0.9, Basophils (%) (Auto) 0.6, Neutrophils # (Auto) 10.9H, Lymphocytes # (Auto) 1.3L, Monocytes # (Auto) 0.8, Eosinophils # (Auto) 0.1, Basophils # (Auto) 0.1, Nucleated Red Blood Cells % (auto) 0.0, Lactic Acid Level 0.6, Total Bilirubin 0.6, Direct Bilirubin 0.2, Aspartate Amino Transf (AST/SGOT) 15, Alanine Aminotransferase (ALT/SGPT) 25, Alkaline Phosphatase 98, Total Protein 6.2L, Albumin 3.0L, Albumi n/Globulin Ratio 0.9, Lipase 105, Coronavirus (COVID-19)(PCR) NEGATIVE 08/13/20 19:20: POC Glucose (Misc Panel) 166H, POC Sodium (Misc Panel) 139, POC Potassium (Misc Panel) 3.5, POC Chloride (Misc Panel) 102, POC Total CO2 (Misc Panel) 24.0, POC Blood Urea Nitrogen (Misc Panel 30H, POC Ionized Calcium (Misc Panel) 4.7, POC Creatinine (Misc Panel) 2.4H, POC Hematocrit (Misc Panel) 42.0 08/13/20 22:08: Urine Color YELLOW, Urine Appearance HAZY, Urine pH 6.0, Urine Specific [place] 1.011, Urine Protein 1+H, Urine Glucose (UA) NEGATIVE, Urine Ketones NEGATIVE, Urine Blood 3+H, Urine Nitrite NEGATIVE, Urine Bilirubin NEGATIVE, Urine Urobilinogen 0.2, Urine Leukocyte Esterase NEGATIVE, Urine WBC (Auto) 20H, Urine RBC (Auto) TNTCH, Urine Hyaline Casts (Auto) 0, Urine Bacteria (Auto) NEGATIVE, Urine Squamous Epithelial Cells 0, Urine Mucus (Auto) SMALL, Urine Sperm (Auto) CBC/BMP Laboratory Tests 08/13/20 18:58 Microbiology Microbiology 08/13/20 Urine Culture, Received Pending Home Medications Scheduled PRN Ketorolac Tromethamine (Ketorolac Tromethamine) 10 Mg Tablet, 10 MG PO Q6H PRN for PAIN Ondansetron (Ondansetron Odt) 4 Mg Tab.rapdis, 4 MG PO Q6H PRN for NAUSEA OR VOMITING Oxycodone HCl/Acetaminophen (Oxycodone-Acetaminophen 5-325) 1 Each Tablet, 1 TAB PO Q6H PRN for PAIN Allergies Coded Allergies: No Known Allergies (Unverified , 02/16/19) A-FIB/CHADSVASC A-FIB History Current/History of A-Fib/PAF?: No Current PO Anticoag Therapy: No GME ATTESTATION GME ATTESTATION My faculty preceptor for this patient encounter was physically present during the encounter and was fully available. All aspects of the patient interview, examination, medical decision making process, and medical care plan development were reviewed and approved by the faculty preceptor. The faculty preceptor is aware and concurs with the plan as stated in the body of this note and will attest to such by his/her cosignature. ATTENDING NOTE TIME OF SERVICE 1035PM is a 49 yr old smoker a hx of HTN and nephrolithiasis who presented w c/o of bilateral flank pain that radiates to the groin and was found to have bilateral obstructing kidney stones w MARYANNE, Pyelonephritis and HTN Urgency. Plan: NPO, IVF, f/u Ulytes for FENa, morphine & f/u w Urology , start amlodipine for HTN, smoking cessation education rest per 's H&P UMA TERRELL DO Aug 13, 2020 23:51 PIYUSH CHISHOLM MD Aug 14, 2020 04:35
[2020-08-14] VITALS (9 sets, daily range): BP systolic 141–178; BP diastolic 82–100
[2020-08-14] MEDS: MORPHINE 4 MG/ML 1ML VIAL/SYRINGE (J2270) IV PRN ×5 (03:33→14:27)
[2020-08-14 05:34] LABS: HEMATOCRIT 39.2 % (42.0-52.0); HEMOGLOBIN 12.7 g/dl (13.5-17.5); MEAN CORPUSCULAR HEMOGLOBIN 27.8 pg (27.0-33.0); MEAN CORPUSCULAR HGB CONC 32.4 g/dl (32.0-36.5); MEAN CORPUSCULAR VOLUME 85.8 fl (80.0-96.0); PLATELET COUNT, AUTOMATED 227 10^3/uL (150-450); RED BLOOD COUNT 4.57 10^6/uL (4.30-6.10); WHITE BLOOD COUNT 9.9 10^3/uL (4.0-10.0)
[2020-08-14] MEDS: NS 1,000 ML IV SCH ×3 (05:42→19:00)
[2020-08-14 06:00] LABS: ALBUMIN 2.7 GM/DL (3.2-5.2); BILIRUBIN,TOTAL 0.8 MG/DL (0.2-1.0); CALCIUM LEVEL 8.4 MG/DL (8.5-10.1); CREATININE FOR GFR 2.38 MG/DL (0.70-1.30); TOTAL PROTEIN 6.2 GM/DL (6.4-8.2)
[2020-08-14] MEDS ORDERED: TAMSULOSIN 0.4 MG CAP PO SCH (09:00)
[2020-08-14] MEDS ORDERED: CONRAY-60 60% 50ML VIAL (Q9961) As Ordered ONE (09:50)
--- NOTE | 2020-08-14 13:09 | SMCUROLCON ---
Urology Consultation General Date of Consultation 08/14/20 Reason For Consultation This patient is seen for Shreyas, Hypertensive Urgency, Nephrolithiasis. History of Present Illness The patient is a [49]-year-old [man] with a past medical history for [nephrolithiasis] admitted for worsening ureteral colic. He was seen in the Urology clinic last week and was found to have large stones in the left kidney and a small stone in the right proximal ureter. He was scheduled for outpatient management of the right sided stone in the coming weeks but could no longer tolerate the pain at home. He denies any fever or chills and has had no clinical infections. He has nausea despite the meds and severe pain despite the analgesics given. Medications Current Medications Current Medications Medications (Trade) Dose Ordered Sig/Kathleen Route PRN Reason Start Time Stop Time Status Last Admin Dose Admin Acetaminophen (Tylenol Tab) 650 mg Q4H PRN PO PAIN OR FEVER 08/13/20 23:15 Al Hydrox/Mg Hydrox/Simethicone (Mylanta) 30 ml DAILY PRN PO DYSPEPSIA 08/13/20 23:15 Amlodipine Besylate (Norvasc) 2.5 mg DAILY PO 08/14/20 04:30 08/14/20 04:30 Home Med (Med Rec Complete!) ASDIRECTED XX 08/13/20 19:30 08/13/20 19:28 DC Labetalol HCl (Normodyne, Trandate) 5 mg STAT STAT IV 08/13/20 22:32 08/13/20 22:33 DC 08/13/20 23:05 Magnesium Hydroxide (Milk Of Magnesia) 30 ml DAILY PRN PO CONSTIPATION 08/13/20 23:15 Morphine Sulfate (Morphine Sulfate Inj) 3 mg Q2H PRN IV pain 08/13/20 22:45 08/14/20 11:37 Ondansetron HCl (ZOFRAN INJection) 4 mg Q6H PRN IV NAUSEA 08/13/20 23:15 08/14/20 11:36 Sodium Chloride 1,000 ml @ 175 mls/hr Q5H43M IV 08/14/20 04:30 08/14/20 11:37 Tamsulosin HCl (Flomax) 0.4 mg DAILY PO 08/14/20 09:00 08/14/20 08:20 Allergies Allergies: Coded Allergies: No Known Allergies (Unverified , 02/16/19) Physical Examination Abdomen Exam: Normal Bowel Sounds (MIld lower abdominal tenderness without surgical signs) Male Exam: Normal Genital Exam Vital Signs/I&O Vital Signs Date Time Temp Pulse Resp B/P (MAP) Pulse Ox O2 Delivery O2 Flow Rate FiO2 08/14/20 11:47 18 08/14/20 07:20 99.0 69 161/92 (115) 96 Room Air I&O- Last 24 Hours up to 6 AM 08/14/20 06:00 Intake Total 1200 ml Balance 1200 ml Laboratory Data 24H Labs Laboratory Tests 2 08/13/20 18:58: Immature Granulocyte % (Auto) 0.5, Neutrophils (%) (Auto) 82.2H, Lymphocytes (%) (Auto) 9.6L, Monocytes (%) (Auto) 6.2H, Eosinophils (%) (Auto) 0.9, Basophils (%) (Auto) 0.6, Neutrophils # (Auto) 10.9H, Lymphocytes # (Auto) 1.3L, Monocytes # (Auto) 0.8, Eosinophils # (Auto) 0.1, Basophils # (Auto) 0.1, Nucleated Red Blood Cells % (auto) 0.0, Lactic Acid Level 0.6, Total Bilirubin 0.6, Direct Bilirubin 0.2, Aspartate Amino Transf (AST/SGOT) 15, Alanine Aminotransferase (ALT/SGPT) 25, Alkaline Phosphatase 98, Total Protein 6.2L, Albumin 3.0L, [place] min/Globulin Ratio 0.9, Lipase 105, Coronavirus (COVID-19)(PCR) NEGATIVE 08/13/20 19:20: POC Glucose (Misc Panel) 166H, POC Sodium (Misc Panel) 139, POC Potassium (Misc Panel) 3.5, POC Chloride (Misc Panel) 102, POC Total CO2 (Misc Panel) 24.0, POC Blood Urea Nitrogen (Misc Panel 30H, POC Ionized Calcium (Misc Panel) 4.7, POC Creatinine (Misc Panel) 2.4H, POC Hematocrit (Misc Panel) 42.0 08/13/20 22:08: Urine Color YELLOW, Urine Appearance HAZY, Urine pH 6.0, Urine Specific [place] 1.011, Urine Protein 1+H, Urine Glucose (UA) NEGATIVE, Urine Ketones NEGATIVE, Urine Blood 3+H, Urine Nitrite NEGATIVE, Urine Bilirubin NEGATIVE, Urine Urobilinogen 0.2, Urine Leukocyte Esterase NEGATIVE, Urine WBC (Auto) 20H, Urine RBC (Auto) TNTCH, Urine Hyaline Casts (Auto) 0, Urine Bacteria (Auto) NEGATIVE, Urine Squamous Epithelial Cells 0, Urine Mucus (Auto) SMALL, Urine Sperm (Auto) 08/14/20 05:17: Nucleated Red Blood Cells % (auto) 0.0, Total Bilirubin 0.8, Aspartate Amino Transf (AST/SGOT) 13, Alanine Aminotransferase (ALT/SGPT) 23, Alkaline Phosphatase 92, Total Protein 6.2L, Albumin 2.7L, Albumin/Globulin Ratio 0.8, Anion Gap 4L, Glomerular Filtration Rate 31.0L, Calcium Level 8.4L 08/14/20 06:25: Urine Random Creatinine 125.0, Urine Random Sodium 67, Urine Random Urea Nitrogen 635 CBC/BMP Laboratory Tests 08/13/20 18:58 08/14/20 05:17 Microbiology Microbiology 08/13/20 Urine Culture, Received Pending Assessment Right distal ureteral stone and left renal pelvic stones causing obstruction. He needs a PCNL on the left side and that cannot be arranged emergently but I will manage the right side urgently. Plan Right ureteroscopy with stone extraction, possible laser and bilateral ureteral stent. Risks and benefits of this have been discussed with him in detail. He understands and is willing to proceed. JAMILAH SAUL MD Aug 14, 2020 13:09
--- NOTE | 2020-08-14 14:00 | IPNPDOC ---
Text Note Date of Service The patient was seen on 08/14/20. NOTE Subjective: No any acute events overnight. Patient continues to complain of left flank pain. Objective: GENERAL APPEARANCE: NAD HEENT: no scleral icterus, no JVD, EOMI CARDIOVASCULAR: S1S2 LUNGS: CTA ABDOMEN: Left flank tenderness, bowel sounds present MUSCULOSKELETAL: no cyanosis, no swelling INTEGUMENT: no generalized palor NEUROLOGICAL: cranial nerve function from 2-12 intact intact, follows commands, speech not dysarthric Assessment and plan Patient is a 49-year-old male with a limited past medical history which includes hypertension and nephrolithiasis, not currently on any regular medical treatment, who presents to emergency department tonight complaining of increasing bilateral back pain with anterior radiation. He was seen in the outpatient setting by urology on 08/10/20 after being diagnosed left-sided hydronephrosis and bilateral nephrolithiasis. Patient was scheduled for outpatient bilateral stent placement with lithotripsy. Patient was told that should his pain increase it was imperative that he seek emergency department evaluation as this could likely represent bilateral hydronephrosis. Indeed, this was can confirmed on recent imaging. Patient will be admitted for urologic evaluation and management. Bilateral Hydronephrosis, multiple nephrolithiasis Right ureteroscopy with stone extraction, possible laser and bilateral ureteral stent today. Patient doesn't have leukocytosis, no fever Await urine culture Hypertensive Urgency Likely secondary to pain and MARYANNE Increase the dose of amlodipine to 10 mg Reduce rate of fluid 100 mL per hour MARYANNE Most likely secondary to hydronephrosis Continue hydration VS,Fishbone, I+O VS, Fishbone, I+O Laboratory Tests 08/13/20 18:58 08/14/20 05:17 Vital Signs Date Time Temp Pulse Resp B/P (MAP) Pulse Ox O2 Delivery O2 Flow Rate FiO2 08/14/20 12:00 98.3 72 18 172/100 (124) 94 Room Air I&O- Last 24 Hours up to 6 AM 08/14/20 06:00 Intake Total 1200 ml Balance 1200 ml STACY GALEANO DO Aug 14, 2020 14:00
[2020-08-14] MEDS: HEPARIN SOD (PORCINE) 5000UNITS/ML 1ML VIAL/SYRINGE SQ SCH ×2 (14:27→20:44)
[2020-08-14] MEDS ORDERED: hydrALAZINE 20MG/ML 1ML VIAL (J0360 PER 20MG) IV PRN (14:30)
[2020-08-14] MEDS ORDERED: fentaNYL 100 MCG/2 ML INJECTION (J3010) As Ordered ONE (16:41)
[2020-08-14] MEDS ORDERED: LIDOCAINE 2% 100MG/5ML SDV (FOR ANES.) As Ordered ONE (16:41)
[2020-08-14] MEDS ORDERED: cefTRIAXone SOD 1GM VIAL (J0696 PER 250MG) As Ordered ONE (16:48)
--- NOTE | 2020-08-14 17:31 | REP ---
INDICATION: BILATERAL STENT PLACEMENT. COMPARISON: 02/16/2019. TECHNIQUE: Five C-arm views abdomen and pelvis performed. FINDINGS: Contrast is injected into both ureters partially opacifying the ureters and pelvocaliceal systems bilaterally. Two large stones are seen in the lower pole left kidney and left renal pelvis. Both pelvocaliceal systems appear somewhat dilated. The right ureteral stent demonstrates proximal end coiled in the superior right renal collecting system and the distal end coiled in the urinary bladder. The proximal end of the left ureteral stent is coiled in the left renal pelvis, the distal end in bladder. IMPRESSION: 27 seconds fluoroscopy time utilized. <Electronically signed by Ubaldo Platt > 08/14/20 [id number]
[2020-08-14] MEDS ORDERED: ONDANSETRON 4MG/2ML VIAL IV PRN (18:15)
[2020-08-14] MEDS ORDERED: fentaNYL 100 MCG/2 ML INJECTION (J3010) IV PRN (18:15)
[2020-08-14] MEDS ORDERED: LR 1,000 ML IV SCH (18:15)
[2020-08-14] MEDS ORDERED: MORPHINE 4 MG/ML 1ML VIAL/SYRINGE (J2270) IV PRN (18:30)
[2020-08-15] MEDS ORDERED: UNRESOLVED CLARIFICATION ENTRY XX SCH (00:01)
[2020-08-15 00:13] VITALS: BP 125/76
[2020-08-15 04:00] VITALS: BP 132/80
[2020-08-15] MEDS: NS 1,000 ML IV SCH (05:05)
[2020-08-15 06:06] LABS: HEMATOCRIT 42.2 % (42.0-52.0); HEMOGLOBIN 13.6 g/dl (13.5-17.5); MEAN CORPUSCULAR HEMOGLOBIN 27.6 pg (27.0-33.0); MEAN CORPUSCULAR HGB CONC 32.2 g/dl (32.0-36.5); MEAN CORPUSCULAR VOLUME 85.8 fl (80.0-96.0); PLATELET COUNT, AUTOMATED 283 10^3/uL (150-450); RED BLOOD COUNT 4.92 10^6/uL (4.30-6.10); WHITE BLOOD COUNT 9.6 10^3/uL (4.0-10.0)
[2020-08-15 06:29] LABS: BILIRUBIN,TOTAL 0.5 MG/DL (0.2-1.0); CALCIUM LEVEL 8.8 MG/DL (8.5-10.1); CREATININE FOR GFR 1.51 MG/DL (0.70-1.30); GLOMERULAR FILTRATION RATE 52.3 (>56); TOTAL PROTEIN 7.1 GM/DL (6.4-8.2)
[2020-08-15 08:03] VITALS: BP 149/84
[2020-08-15] MEDS: HEPARIN SOD (PORCINE) 5000UNITS/ML 1ML VIAL/SYRINGE SQ SCH (08:11)
[2020-08-15 08:12] VITALS: BP 149/84
--- NOTE | 2020-08-15 16:23 | DS.PDOC ---
Discharge Summary General Date of Admission Aug 13, 2020 at 22:33 Date of Discharge 08/15/20 Discharge Summary PROCEDURES PERFORMED DURING STAY: [None]. ADMITTING DIAGNOSES: Bilateral Hydronephrosis, multiple nephrolithiasis Hypertensive Urgency SHREYAS DISCHARGE DIAGNOSES: Bilateral Hydronephrosis, multiple nephrolithiasis Hypertensive Urgency SHREYAS COMPLICATIONS/CHIEF COMPLAINT: Shreyas, Hypertensive Urgency, Nephrolithiasis. HISTORY OF PRESENT ILLNESS: Patient is a 49-year-old male with a limited past medical history which includes hypertension and nephrolithiasis, not currently on any regular medical treatment, who presents to emergency department [facility] complaining of increasing bilateral back pain with anterior radiation. He was seen in the outpatient setting by urology on 08/10/20 after being diagnosed left-sided hydronephrosis and bilateral nephrolithiasis. Patient was scheduled for outpatient bilateral stent placement with lithotripsy. Patient was told that should his pain increase it was imperative that he seek emergency department evaluation as this could likely represent bilateral hydronephrosis. Indeed, this was can confirmed on recent imaging. Patient will be admitted for urologic evaluation and management. HOSPITAL COURSE: During hospital stay following issues addressed Bilateral Hydronephrosis, multiple nephrolithiasis Right ureteroscopy with stone extraction and left ureteral stent placement was done on 08/14/20 Patient doesn't have leukocytosis, no fever Hypertensive Urgency Likely secondary to pain and SHREYAS Increase the dose of amlodipine to 10 mg Patient will need follow-up with PCP SHREYAS Most likely secondary to hydronephrosis Continue hydration DISCHARGE MEDICATIONS: Please see below. ALLERGIES: Please see below. PHYSICAL EXAMINATION ON DISCHARGE: VITAL SIGNS: Please see below. GENERAL APPEARANCE: NAD HEENT: no scleral icterus, no JVD, EOMI CARDIOVASCULAR: S1S2 LUNGS: CTA ABDOMEN: Nontender, nondistended, bowel sounds present MUSCULOSKELETAL: no cyanosis, no swelling INTEGUMENT: no generalized palor NEUROLOGICAL: cranial nerve function from 2-12 intact intact, follows commands, speech not dysarthric LABORATORY DATA: Please see below. IMAGING: COMPARISON: 02/16/2019. TECHNIQUE: Five C-arm views abdomen and pelvis performed. FINDINGS: Contrast is injected into both ureters partially opacifying the ureters and pelvocaliceal systems bilaterally. Two large stones are seen in the lower pole left kidney and left renal pelvis. Both pelvocaliceal systems appear somewhat dilated. The right ureteral stent demonstrates proximal end coiled in the superior right renal collecting system and the distal end coiled in the urinary bladder. The proximal end of the left ureteral stent is coiled in the left renal pelvis, the distal end in bladder. IMPRESSION: 27 seconds fluoroscopy time utilized. PROGNOSIS: Fair ACTIVITY: [As tolerated]. Diet: Regular DISCHARGE PLAN: Follow-up with urologist in 2 weeks and PCP in one week DISPOSITION: 01 Home, Self-Care. DISCHARGE CONDITION: [Stable]. TIME SPENT ON DISCHARGE: Greater than 20 minutes. Vital Signs/I&Os Vital Signs Date Time Temp Pulse Resp B/P (MAP) Pulse Ox O2 Delivery O2 Flow Rate FiO2 08/15/20 08:12 76 149/84 08/15/20 08:03 98.1 18 95 Room Air I&O- Last 24 Hours up to 6 AM 08/15/20 06:00 Intake Total 1695 ml Output Total 4525 ml Balance -2830 ml Laboratory Data Labs 24H Laboratory Tests 2 08/14/20 16:43: 08/15/20 05:42: Nucleated Red Blood Cells % (auto) 0.0, Anion Gap 8, Glomerular Filtration Rate 52.3L, Calcium Level 8.8, Total Bilirubin 0.5, Aspartate Amino Transf (AST/SGOT) 9, Alanine Aminotransferase (ALT/SGPT) 21, Alkaline Phosphatase 101, Total Protein 7.1, Albumin 3.0L, Albumin/Globulin Ratio 0.7 CBC/BMP Laboratory Tests 08/15/20 05:42 Microbiology Microbiology 08/13/20 Urine Culture - Final, Complete Discharge Medications Scheduled PRN Ketorolac Tromethamine (Ketorolac Tromethamine) 10 Mg Tablet, 10 MG PO Q6H PRN for PAIN, (Reported) Ondansetron (Ondansetron Odt) 4 Mg Tab.rapdis, 4 MG PO Q6H PRN for NAUSEA OR V OMITING, (Reported) Oxycodone HCl/Acetaminophen (Oxycodone-Acetaminophen 5-325) 1 Each Tablet, 1 TAB PO Q6H PRN for PAIN, (Reported) Allergies Coded Allergies: No Known Allergies (Unverified , 02/16/19) STACY GALEANO DO Aug 15, 2020 16:23
--- NOTE | 2020-08-16 10:51 | RO ---
OPERATIVE NOTE DATE OF OPERATION: 08/15/2020 PREOPERATIVE DIAGNOSIS: Right distal ureteral stone and left renal stone. POSTOPERATIVE DIAGNOSIS: Right distal ureteral stone and left renal stone. OPERATIVE PROCEDURES PERFORMED: 1. Cystoscopy. 2. Bilateral retrograde pyelogram. 3. Right ureteroscopy with stone extraction. 4. Placement of bilateral ureteral stents. SURGEON: Ced Guzman MD ANESTHESIA: General anesthesia. ESTIMATED BLOOD LOSS: Minimal. INDICATIONS FOR PROCEDURE: Mr. Jarad Hardy is a 49-year-old man with a prior history of stones; large, 1.5 cm on the left side at the left ureteropelvic junction (UPJ) and a smaller 6 mm in the mid to distal ureter on the right side who presents for management of his problem. He was previously scheduled for a procedure when the stone on his right side was in the more proximal ureter. PROCEDURE IN DETAIL: The patient was brought into the operating room and placed in supine position. After the initiation of general anesthesia, he was placed in the dorsal lithotomy position and prepped and draped in the usual sterile fashion. Cystourethroscopy was performed using a 21-[place] cystourethroscope. The anterior and posterior urethra was noted to be normal. The prostate revealed mild elevated of the median bar. The bladder was entered with minimal difficulty. Upon entering into the bladder, the ureteral orifices were noted in anatomical position and produced clear efflux. There were no mucosal lesions identified but grade 1-2 trabeculations were seen. Using a 5-[place] open-ended catheter, a right retrograde pyelogram was performed first. This revealed a filling defect consistent with the stone at about the junction of the middle and distal thirds of the ureter. There was mild hydronephrosis noted behind this. Under fluoroscopic guidance, a wire was placed up into the right renal pelvis and the ureteral orifice was dilated with a balloon. Rigid ureteroscopy was then performed. The stone was seen in the previously described location and it was grasped with a basket and removed in its entirety. Repeat ureteroscopy at the level of the ureteropelvic junction revealed no other calculi on that side in the ureter. The ureteroscope was removed and the cystoscope was replaced and this was used to place a 6-[place] double-pigtail stent such that one coil was in the renal pelvis and the subsequent coil was in the bladder. The string was allowed to exit the urethral meatus. The bladder was then drained in its entirety and repeat cystoscopy was performed. At this time, a left retrograde pyelogram was performed. This revealed normal ureter without any obvious calculi. The patient was noted to have two large stones, each about a centimeter and a half; one in the renal pelvis at the ureteropelvic junction and one in the lower pole. There was moderate hydronephrosis noted behind these. A wire was then placed on the left side across the ureteral orifice and past the ureteropelvic junction. A 6-[place] stent was then placed on that side again such that one coil was in the renal pelvis and the subsequent coil was in the bladder. The string was removed from the stent. The bladder was then drained in its entirety and the cystoscope and the sheath were removed. The patient was returned to the supine position and anesthesia was reversed. He was transferred to a bed and taken to the postanesthesia care unit in good condition. Of note, the needle and instrument counts were correct at the conclusion of the case.
== END 2020-08-15 13:01 | disposition home or self-care (01) | DRG 446 ==
LOC: M ED 18:02 → M ED INP 22:33 → ENRESERV 08-14 00:35 → M PCU 08-14 02:04
PROVIDERS: ADMIT Internal Medicine; ATTEND Internal Medicine
PROC: 0TC68ZZ Extirpation of Matter from Right Ureter, Via Natural or Artificial Opening Endoscopic (ICD-10-PCS; principal; 2020-08-15)
PROC: 0T788DZ Dilation of Bilateral Ureters with Intraluminal Device, Via Natural or Artificial Opening Endoscopic (ICD-10-PCS; 2020-08-15)
DX: N13.2 Hydronephrosis with renal and ureteral calculous obstruction (principal); N17.9 Acute kidney failure, unspecified; Q62.11 Congenital occlusion of ureteropelvic junction; I16.0 Hypertensive urgency; I10 Essential (primary) hypertension; F17.200 Nicotine dependence, unspecified, uncomplicated

== ENCOUNTER → 2020-08-27 | Outpatient (CLI) | payer BC ==
[~2020-08-27] MED LIST changes: +AMLO1TAB24 PO; +CIPR500T3 PO; +OXYC1TAB23 PO
--- NOTE | 2020-08-27 08:16 | REP ---
INDICATION: KIDNEY STONE, PREOP TESTING LAB AND EKG FIRST. COMPARISON: Comparison chest x-ray July 23, 2016. TECHNIQUE: Two views.. FINDINGS: The lungs are well inflated and free of infiltrate. The pleural angles are sharp. The heart size is normal. Pulmonary vasculature is not increased. No significant bony abnormality is seen. The thoracic aorta is somewhat tortuous as before. IMPRESSION: No active disease.. <Electronically signed by Enrique Ochoa > 08/27/20 0314
--- NOTE | 2020-08-27 16:40 | ECGEPIP ---
[facility] Test Date: 2020-08-27 Pat Name: BANG JOHNSON Department: Room: - Gender: Male [employer]: : 1970 Requested By: DAVID Luke Order Number: [id number] Reading MD: Tin Anderson Measurements Intervals [place] Rate: 108 P: 41 MO: 181 QRS: 24 QRSD: 98 T: 57 QT: 328 QTc: 441 Interpretive Statements SINUS TACHYCARDIA ABNORMAL RHYTHM ECG Increased heart rate compared with 05/19/2019. Electronically Signed on 08-27-2020 16:40:02 EST by Tin Anderson
== END ==
LOC: M LAB 07:22
PROVIDERS: ATTEND Urology
DX: N20.0 Calculus of kidney (principal); R94.31 Abnormal electrocardiogram [ECG] [EKG]

== ENCOUNTER → 2020-08-28 | Outpatient (POV) | payer BC ==
--- NOTE | 2020-08-29 12:34 | IRCOV ---
[facility] IR Consult Office Visit IR Consult Office Visit DATE: Aug 28, 2020 Patient agreed to this telephone consultation. I spent 30 minutes reviewing patient's records, imaging and talking to the patient. REASON FOR CONSULTATION/CHIEF COMPLAINT: Left-sided kidney stone. HISTORY OF PRESENT ILLNESS: 49-year-old male with long history of bilateral kidney stones, status post 2 prior stone procedures on the left kidney. Patient had a sternal removal procedure in the left kidney performed 10 years ago at [facility] after which he was stone free. He then became symptomatic with s tones again and had a second procedure one and a half years ago at [facility]. Patient had right ureteroscopy with stone extraction and bilateral ureteral stent placed on August 15 this year. He then underwent a procedure for right ureteral stent removal. His left ureteral stent remains in place. He is referred by urology for antegrade nephroureteral access for PCNL. ALLERGIES: Please see below. HOME MEDICATIONS: Please see below. PAST MEDICAL HISTORY: Hypertension Elevated blood glucose Kidney stones PAST SURGICAL HISTORY: Lithotripsy FAMILY HISTORY: Father suffered with kidney stones. SOCIAL HISTORY: Current smoker, 1 pack per day. Denies alcohol or drugs. REVIEW OF SYSTEMS: Otherwise negative. PHYSICAL EXAMINATION: No video on patient side. LABORATORY DATA: 08/15/2020 hemoglobin 13.6 hematocrit 42.2 WBC 9.6 platelets 283 sodium 140 potassium 4.0 BUN 24 creatinine 1.5 GFR 52.3 fasting glucose 168 Imaging: I reviewed the CT abdomen pelvis without contrast from 08/13/2020. 2 large stones in the left kidney with mild hydronephrosis. I reviewed the retrograde pyelogram from 08/14/2020. Bilateral retrograde ureteral stents were placed. ASSESSMENT/PLAN: 49-year-old male with chronic history of kidney stones now for left-sided PCNL. We discussed the risks and benefits of nephrostomy and nephroureteral access for antegrade stone access. Patient would like to proceed. We have scheduled the patient for antegrade left nephroureteral access for PCNL. Thank you for this referral. Cc Dr. Shreyas Hernandez Cc Dr. Ced Guzman Allergies Coded Allergies: No Known Allergies (Unverified , 02/16/19) Home Medications Scheduled PRN Ketorolac Tromethamine (Ketorolac Tromethamine), 10 MG PO Q6H PRN for PAIN, (Reported) Ondansetron (Ondansetron Odt), 4 MG PO Q6H PRN for NAUSEA OR VOMITING, (Reported) Oxycodone HCl/Acetaminophen (Oxycodone-Acetaminophen 5-325), 1 TAB PO Q6H PRN for PAIN, (Reported) EDDA KIRBY MD Aug 29, 2020 12:34
== END ==
LOC: M TMIRPOV 07:55
PROVIDERS: ATTEND Radiology Diagnostic Radiology
DX: Z96.0 Presence of urogenital implants (principal); F17.210 Nicotine dependence, cigarettes, uncomplicated; Z87.442 Personal history of urinary calculi

== ENCOUNTER → 2020-08-30 | Outpatient (CLI) | payer BC ==
[~2020-08-30] MED LIST changes: +CLIN150C14 PO
[2020-08-30 14:02] LABS: BASO # 0.1 10^3/uL (0.0-0.2); BASO % 0.8 % (0.0-1.0); EOS # 0.2 10^3/uL (0.0-0.5); EOS % 1.4 % (0.0-3.0); HEMATOCRIT 46.3 % (42.0-52.0); HEMOGLOBIN 14.8 g/dl (13.5-17.5); LYMPH # 2.5 10^3/uL (1.5-5.0); LYMPH % 23.9 % (24.0-44.0); MEAN CORPUSCULAR HEMOGLOBIN 27.7 pg (27.0-33.0); MEAN CORPUSCULAR VOLUME 86.5 fl (80.0-96.0); MONO # 0.7 10^3/uL (0.0-0.8); MONO % 6.2 % (0.0-5.0); NEUTROPHILS % 67.1 % (36.0-66.0); PLATELET COUNT, AUTOMATED 343 10^3/uL (150-450); RED BLOOD COUNT 5.35 10^6/uL (4.30-6.10); WHITE BLOOD COUNT 10.4 10^3/uL (4.0-10.0)
[2020-08-30 14:12] LABS: INR 0.87
[2020-08-30 14:13] LABS: PARTIAL THROMBOPLASTIN TIME 29.9 SECONDS (24.2-38.5)
[2020-08-30 14:37] LABS: ALBUMIN 3.8 GM/DL (3.2-5.2); ALT/SGPT 34 U/L (12-78); BILIRUBIN,TOTAL 0.4 MG/DL (0.2-1.0); BLOOD UREA NITROGEN 20 MG/DL (7-18); CALCIUM LEVEL 9.5 MG/DL (8.5-10.1); CARBON DIOXIDE LEVEL 28 MEQ/L (21-32); CHLORIDE LEVEL 104 MEQ/L (98-107); CHOLESTEROL LEVEL 152 MG/DL (<200); CHOLESTEROL RISK RATIO 4.222 (<5); FREE T4 1.09 NG/DL (0.76-1.46); GLOMERULAR FILTRATION RATE > 60.0 (>56); GLUCOSE, FASTING 118 MG/DL (70-100); HDL CHOLESTEROL 36 MG/DL (>40); LDL CHOLESTEROL 96 MG/DL (<100); NON-HDL-C 116 MG/DL; NT-PRO BNP 59 PG/ML (<125); POTASSIUM SERUM 4.3 MEQ/L (3.5-5.1); SODIUM LEVEL 137 MEQ/L (136-145); TOTAL 25(OH) VITAMIN D 18.7 NG/ML (30.0-100.0); TOTAL PROTEIN 7.2 GM/DL (6.4-8.2); TRIGLYCERIDES LEVEL 102 MG/DL (<150)
== END ==
LOC: M LAB 13:18
PROVIDERS: ATTEND Family Medicine
DX: E11.9 Type 2 diabetes mellitus without complications (principal)

== ENCOUNTER → 2020-08-31 | Outpatient (CLI) | payer BC | LOC: M LABSMTC 13:42 | PROVIDERS: ATTEND Anesthesiology | DX: Z01.812 Encounter for preprocedural laboratory examination (principal); Z20.828 Contact with and (suspected) exposure to other viral communicable diseases ==

== ENCOUNTER → 2020-09-03 | Outpatient (CLI) | payer BC ==
[~2020-09-03] MED LIST changes: +ISOVUE-300 61% 50ML VIAL As Ordered ONE; +LIDOCAINE 1% MDV 20ML VIAL As Ordered ONE; +MEPERIDINE INJ 25 MG/ML VIAL (J2175) As Ordered ONE; +MIDAZOLAM INJ 2MG/2ML VIAL (J2250 PER 1MG) As Ordered ONE; +PROMETHAZINE INJ 25 MG/ML VIAL (J2550) As Ordered ONE; +ceFAZolin 1GM VIAL (J0690 PER 500MG) As Ordered ONE; +diphenhydrAMINE 50MG/ML VIAL (J1200) As Ordered ONE; +fentaNYL 100 MCG/2 ML INJECTION (J3010) As Ordered ONE
--- NOTE | 2020-09-03 13:39 | IRHP ---
[facility] IR Pre-Procedure H & P General Date of Service: Sep 03, 2020 Procedure: Same Day Surgery Interval History and Physical I have seen the patient and reviewed last H & P performed within 30 days. There is no significant interval change. History of Present Illness Chief Complaint The patient is a 49-year-old male admitted with a reason for visit of Kidney Stones. PRE-PROCEDURE DIAGNOSIS: kidney stones HEART: normal rate. LUNGS: normal breathing at rest. ASA Classification ASA Classification: II-Mild systemic disease, III-Severe systemic dis. Mallampati Score: II NPO: Yes Problems with prior sedation: No Obstructive Sleep Apnea: No Plan moderate sedation Allergies Uncoded Allergies: TEA (Allergy, Intermediate, hives, 09/03/20) Home Medications Scheduled Amlodipine Besylate (Amlodipine Besylate), 5 MG PO BID, (Reported) Clindamycin Hcl (Clindamycin HCl), 150 MG PO Q6H, (Reported) Discontinued Medications Ketorolac Tromethamine (Ketorolac Tromethamine), 10 MG PO Q6H PRN for PAIN, (Reported) Discontinued Reason: Pt states not taking Ondansetron (Ondansetron Odt), 4 MG PO Q6H PRN for NAUSEA OR VOMITING, (Reported) Discontinued Reason: Pt states not taking Oxycodone HCl/Acetaminophen (Oxycodone-Acetaminophen 5-325), 1 TAB PO Q6H PRN for PAIN, (Reported) Discontinued Reason: Pt states not taking VS, I&O, 24H, Fishbone Vital Signs/I&O Vital Signs Date Time Temp Pulse Resp B/P (MAP) Pulse Ox O2 Delivery O2 Flow Rate FiO2 09/03/20 12:45 98.8 106 20 98 Room Air EDDA KIRBY MD Sep 03, 2020 13:39
[2020-09-03 16:25] VITALS: BP 128/84
--- NOTE | 2020-09-06 14:53 | POST-OPPD ---
Postoperative Procedure Note Date Of Procedure: Sep 03, 2020 Time Of Procedure: 16:00 IR Percutaneous nephroureteral catheter placement using fluoroscopic and ultrasound guidance. IR Nephrostogram and Ureterogram. IR Moderate sedation. Clinical Information:Left kidney stone. Needs antegrade PCNL access. Physician: Dr. Mason. Procedure: The patient was advised of the benefits, risks, and alternatives of the procedure and informed consent was obtained. A time out was performed with verification of the patient's name, MRN, site of procedure, and type of procedure to be performed. The patient was positioned in the prone position on the angiographic table. The site was prepped and draped in the usual sterile fashion. Moderate sedation was performed by the physician including the presence of an independent trained RN who assisted in monitoring the patient's level of consciousness and physiological status. Following the administration of fentanyl and Versed, the physician spent 60 minutes of continuous [id number] time with the patient. A budget engineer radiograph reveals left renal calculi. Internal left ureteral stent is noted. The anticipated puncture site on the flank was anesthetized with lidocaine. Using fluoroscopy guidance, the lower pole calculus was accessed with a 21-gauge Chiba needle. A nephrostogram was performed which demonstrates no significant hydronephrosis or hydroureter. A [place] wire was then advanced into the collecting system, under fluoroscopy guidance. The needle was then exchanged for a nonvascular introducer set. A glide cath in conjunction with a Glidewire was advanced into the ureter, down the ureter and into the bladder, under fluoroscopy guidance. A glide cath was advanced over the wire under fluoroscopy guidance into the bladder. Injection of contrast through the catheter confirmed successful catheterization of the bladder. No extravasation. A 6 [place] Catheter was then advanced over the wire, through the renal collecting system, down the ureter into the bladder. The distal pigtail was formed. A final nephrostogram and ureterogram were performed confirming positioning of the catheter in the renal collecting system, ureter and bladder. No ureteral extravasation. The catheter was sutured in position with 2-0 Prolene and a sterile dressing applied. The patient tolerated the procedure well and was returned to the PRU in stable condition. EBL: < 5 mL. Complications:None. Conclusion: 1. Nephrostogram and Ureterogram demonstrateleft renal calculi without hydronephrosis or hydroureter. 2. Successful left-sided antegrade nephroureteral access for PCNL. Patient to follow-up on Thursday for PCNL. Thank you for this referral. EDDA MASON MD Sep 06, 2020 14:53
== END ==
LOC: M IRPRO 12:21
PROVIDERS: ATTEND Radiology Diagnostic Radiology
DX: N20.0 Calculus of kidney (principal); I10 Essential (primary) hypertension; F17.210 Nicotine dependence, cigarettes, uncomplicated; R73.01 Impaired fasting glucose; Z91.018 Allergy to other foods
CPT/HCPCS: 50433; 99152; 99153; C1758; C1769; C1887; C1894; J0690; J1200; J2175; J2250; J3010; Q9967

== ENCOUNTER 2020-09-05 08:30 | Inpatient (IN) | payer BC ==
[2020-09-05] VITALS (7 sets, daily range): BP systolic 125–148; BP diastolic 77–97
[~2020-09-05] VITALS: Ht 177.8 cm; Wt 89.8 kg
[~2020-09-05 08:30] MED LIST changes: -ISOVUE-300 61% 50ML VIAL As Ordered ONE; -LIDOCAINE 1% MDV 20ML VIAL As Ordered ONE; +LR 1,000 ML IV ONE; -MEPERIDINE INJ 25 MG/ML VIAL (J2175) As Ordered ONE; -MIDAZOLAM INJ 2MG/2ML VIAL (J2250 PER 1MG) As Ordered ONE; -PROMETHAZINE INJ 25 MG/ML VIAL (J2550) As Ordered ONE; -ceFAZolin 1GM VIAL (J0690 PER 500MG) As Ordered ONE; +ceFAZolin SOD 2 GM in IV 1 EA IV ONE; -diphenhydrAMINE 50MG/ML VIAL (J1200) As Ordered ONE; -fentaNYL 100 MCG/2 ML INJECTION (J3010) As Ordered ONE
[2020-09-05] MEDS ORDERED: propofoL 200 MG/20 ML VIAL As Ordered ONE (11:01)
[2020-09-05] MEDS ORDERED: LIDOCAINE 2% 100MG/5ML SDV (FOR ANES.) As Ordered ONE (11:01)
[2020-09-05] MEDS ORDERED: MIDAZOLAM INJ 2MG/2ML VIAL (J2250 PER 1MG) As Ordered ONE (11:01)
[2020-09-05] MEDS ORDERED: fentaNYL 250 MCG/5 ML INJECTION (J3010) As Ordered ONE (11:01)
[2020-09-05] MEDS ORDERED: dexameTHASONE 4 MG/ML 1ML VIAL (J1100 PER 1MG) As Ordered ONE (11:01)
[2020-09-05] MEDS ORDERED: ROCURONIUM BROMIDE 50 MG/5 ML VIAL As Ordered ONE ×2 (11:01→12:52)
[2020-09-05] MEDS ORDERED: ONDANSETRON 4MG/2ML VIAL As Ordered ONE (11:01)
[2020-09-05] MEDS ORDERED: CONRAY-60 60% 50ML VIAL (Q9961) As Ordered ONE (11:08)
[2020-09-05] MEDS ORDERED: LACRILUBE (AKWA TEARS) OPHTH OINT 3.5 GM As Ordered ONE (11:11)
[2020-09-05] MEDS ORDERED: HYDROmorphone HCL 2 MG/ML 1ML VIAL (J1170) As Ordered ONE (13:12)
[2020-09-05] MEDS ORDERED: ACETAMINOPHEN 1000MG 100ML IV BTL (OFIRMEV) (J0131 PER 10MG) As Ordered ONE (13:12)
[2020-09-05] MEDS ORDERED: SUGAMMADEX SODIUM 500 MG/5 ML VIAL (BRIDION) As Ordered ONE (13:12)
--- NOTE | 2020-09-05 13:57 | REP ---
INDICATION: RENAL CALCULI. COMPARISON: None. TECHNIQUE: Eight views. 52.1 seconds of fluoroscopy time is reported. FINDINGS: A sequence of 8 last image hold fluoroscopically obtained spot radiographs of the abdomen document percutaneous large tract stone manipulation and pigtail catheter placement on the left side.. No laterality markers are visible. IMPRESSION: Procedural imaging. <Electronically signed by Enrique Ochoa > 09/05/20 1409
[2020-09-05] MEDS ORDERED: LR 1,000 ML IV SCH (14:00)
[2020-09-05] MEDS ORDERED: HYDROMORPHONE HCL 0.5 MG/ 0.5 ML SYRINGE (J1170 PER 1) IV PRN (14:00)
[2020-09-05] MEDS ORDERED: oxyCODONE 5MG TAB PO PRN (14:00)
[2020-09-05] MEDS ORDERED: ONDANSETRON 4MG/2ML VIAL IV PRN ×2 (14:00→14:15)
[2020-09-05] MEDS: NS 1,000 ML IV SCH ×2 (14:02→20:55)
[2020-09-05] MEDS ORDERED: PERCOCET 5MG/325MG TAB PO PRN ×2 (14:15)
[2020-09-05] MEDS ORDERED: ACETAMINOPHEN TAB 650MG DOSE (2X325MG) PO PRN (14:15)
[2020-09-05] MEDS: fentaNYL 100 MCG/2 ML INJECTION (J3010) IV PRN ×4 (14:31→14:48)
[2020-09-05] MEDS ORDERED: METOCLOPRAMIDE INJ 10MG/2ML VIAL (J2765 PER 1) As Ordered ONE (14:44)
[2020-09-05 14:49] LABS: HEMATOCRIT 46.8 % (42.0-52.0); HEMOGLOBIN 15.4 g/dl (13.5-17.5); MEAN CORPUSCULAR HEMOGLOBIN 28.6 pg (27.0-33.0); MEAN CORPUSCULAR HGB CONC 32.9 g/dl (32.0-36.5); PLATELET COUNT, AUTOMATED 288 10^3/uL (150-450); RED BLOOD COUNT 5.38 10^6/uL (4.30-6.10); WHITE BLOOD COUNT 13.6 10^3/uL (4.0-10.0)
[2020-09-05] MEDS ORDERED: METOCLOPRAMIDE INJ 10MG/2ML VIAL (J2765 PER 1) IV PRN (15:00)
[2020-09-05 15:18] LABS: BLOOD UREA NITROGEN 17 MG/DL (7-18); CALCIUM LEVEL 9.1 MG/DL (8.5-10.1); CARBON DIOXIDE LEVEL 27 MEQ/L (21-32); CHLORIDE LEVEL 104 MEQ/L (98-107); CREATININE FOR GFR 1.19 MG/DL (0.70-1.30); GLOMERULAR FILTRATION RATE > 60.0 (>56); GLUCOSE, FASTING 164 MG/DL (70-100); POTASSIUM SERUM 4.9 MEQ/L (3.5-5.1); SODIUM LEVEL 135 MEQ/L (136-145)
--- NOTE | 2020-09-05 19:30 | ROOPDOC ---
[facility] Report Of Operation Report of Operation DATE OF PROCEDURE: 09/05/20 PREPROCEDURE DIAGNOSIS: Left kidney stones. POSTPROCEDURE DIAGNOSIS: Left kidney stones. PROCEDURE: Left percutaneous nephrolithotomy, cystoscopy, left antegrade nephrostogram with intraoperative interpretation of images, left ureteral stent exchange. SURGEON: Dr. David Cano BRANCH ASSOCIATE: None ANESTHESIA: General. OPERATIVE INDICATIONS: This is a 49 year-old male who was recently found to have bilateral nephrolithiasis with two large left kidney stones measuring approximately 2cm in size each. He had his right sided kidney stones treated previously with ureteroscopy and a left ureteral stent was placed at that time. He is here today for the above-listed procedure. DESCRIPTION OF PROCEDURE: The patient brought to the operating room, and general anesthesia was induced. Prophylactic antibiotics were infused. The patient was then prepped and draped in the usual sterile fashion in the supine position. Flexible cystoscopy was performed and his left ureteral stent was removed. A Jacob catheter was then placed under sterile conditions. The patient was then repositioned in the prone position in preparation for a left-sided percutaneous nephrolithotomy. The patient was then prepped and draped in the usual sterile fashion. At this point, the previously-placed left nephroureteral catheter was utilized to advance a Motion guidewire down the left collecting system and into the bladder. The nephroureteral catheter was then removed, leaving the wire in place. Next, a 2-3 cm transverse incision was made adjacent to the wire. A dual-lumen ureteral catheter was then advanced down into the left renal pelvis. The 2 large stones could easily be seen on fluoroscopy. An antegrade nephrostogram was performed and was negative for extravastion. An Amplatz Super Stiff wire was then advanced down the left collecting system and into the bladder. The dual- lumen ureteral catheter was then removed, leaving both wires in place. The Motion wire was then secured to the drape to serve as a safety wire. Next, over the Super Stiff wire, a balloon dilator was advanced into the left renal pelvis. The balloon was then inflated and left in place for a few seconds . Next, an access sheath was advanced over the balloon into the left renal pelvis. The balloon was then let down and removed, leaving the access sheath and the wire in place. At this point, a nephroscope was introduced into the left renal pelvis. We were able to identify the 2 large left renal kidney stones. The stones were then fragmented into several pieces and suctioned out using a CyberWand. Once satisfied that all of the stone fragments were removed, the nephroscope was taken out, and a #7-Sinhala x 22-32 cm double J ureteral stent was advanced down into the left collecting system over the wire. The Super Stiff wire was then removed, and there were adequate curls of the stent in the left renal pelvis and in the bladder. At this point, the access sheath was removed, and the Motion wire was utilized to advance a #18-Sinhala [place] tip catheter down into the left collecting system. After the tip was within the renal pelvis, the balloon was inflated with about 3 mL of contrast. The [place] tip catheter was also utilized to shoot an antegrade nephrostogram, and this was negative for extravasation. We then secured the [place] tip catheter to the skin with a #2-0 silk suture. This was then connected to gravity drainage and marked the conclusion of the procedure. The patient was placed back in supine position, awakened from anesthesia, and transported to the recovery room in stable condition. ESTIMATED BLOOD LOSS: approximately 50 mL COMPLICATIONS: None. SPECIMENS: Left kidney stone fragments. PLAN: The patient will be admitted to the hospital postoperatively. I will likely remove his left nephrostomy catheter tomorrow, and if his labs are stable and urine output is clear, I will also remove the Jacob catheter. He will be discharged home with the stent in place with the plan to remove that in a few weeks in the office. DAVID CANO MD Sep 05, 2020 19:30
[2020-09-05] MEDS: DOCUSATE SODIUM 100MG CAPSULE PO SCH (20:55)
[2020-09-05] MEDS: ceFAZolin SOD 1 GM in D5W MINI-BAG PLUS 50 ML IV SCH (20:55)
[2020-09-05] MEDS: amLODIPine 5 MG TAB PO SCH (20:55)
[2020-09-05] MEDS: MORPHINE 2 MG/ML 1ML VIAL (J2270) IV PRN (23:52)
[2020-09-06 02:00] VITALS: BP 130/90
[2020-09-06] MEDS: ceFAZolin SOD 1 GM in D5W MINI-BAG PLUS 50 ML IV SCH (03:34)
[2020-09-06] MEDS: MORPHINE 2 MG/ML 1ML VIAL (J2270) IV PRN (03:34)
[2020-09-06 06:00] VITALS: BP 119/73
[2020-09-06 06:09] LABS: HEMATOCRIT 43.2 % (42.0-52.0); HEMOGLOBIN 14.3 g/dl (13.5-17.5); MEAN CORPUSCULAR HEMOGLOBIN 28.6 pg (27.0-33.0); MEAN CORPUSCULAR HGB CONC 33.1 g/dl (32.0-36.5); MEAN CORPUSCULAR VOLUME 86.4 fl (80.0-96.0); PLATELET COUNT, AUTOMATED 288 10^3/uL (150-450); WHITE BLOOD COUNT 14.1 10^3/uL (4.0-10.0)
[2020-09-06 06:29] LABS: BLOOD UREA NITROGEN 15 MG/DL (7-18); CALCIUM LEVEL 8.1 MG/DL (8.5-10.1); CARBON DIOXIDE LEVEL 24 MEQ/L (21-32); CHLORIDE LEVEL 103 MEQ/L (98-107); CREATININE FOR GFR 1.18 MG/DL (0.70-1.30); GLOMERULAR FILTRATION RATE > 60.0 (>56); GLUCOSE, FASTING 236 MG/DL (70-100); POTASSIUM SERUM 4.2 MEQ/L (3.5-5.1); SODIUM LEVEL 136 MEQ/L (136-145)
[2020-09-06] MEDS: DOCUSATE SODIUM 100MG CAPSULE PO SCH ×2 (07:58→08:02)
[2020-09-06 08:01] VITALS: BP 120/86
[2020-09-06] MEDS: amLODIPine 5 MG TAB PO SCH (08:01)
--- NOTE | 2020-09-06 08:43 | IPNPDOC ---
Subjective Review oF Systems Chief Complaint The patient is a 49-year-old male admitted with a reason for visit of Renal Calculi. Events since Last Encounter Patient had 1 episode of emesis o/n, but otherwise did well. Denies nausea this morning. Good pain control. No f/c/ns. Objective Physical Examination General Exam: Alert, Cooperative, No Acute Distress ABDOMEN EXAM: Soft Skin Exam: Nl turgor and temperature Neuro Exam: Normal Speech Psych Exam: Mental status NL, Mood NL Other physical findings L nephrostomy catheter and Jacob catheter both draining yellow urine; L flank incision site c/d/i Vital Signs/I&O Vital Signs Date Time Temp Pulse Resp B/P (MAP) Pulse Ox O2 Delivery O2 Flow Rate FiO2 09/06/20 08:01 81 120/86 09/06/20 06:00 97.8 20 96 09/06/20 04:00 Room Air 09/05/20 13:50 2 I&O- Last 24 Hours up to 6 AM 09/06/20 06:00 Intake Total 4130 ml Output Total 2800 ml Balance 1330 ml Laboratory Data Labs 24H Laboratory Tests 2 09/05/20 09:03: Bedside Glucose (Misc Panel) 189H 09/05/20 13:23: 09/05/20 14:17: Nucleated Red Blood Cells % (auto) 0.0, Anion Gap 4L, Glomerular Filtration Rate > 60.0, Calcium Level 9.1 09/05/20 14:32: Bedside Glucose (Misc Panel) 190H 09/06/20 05:55: Nucleated Red Blood Cells % (auto) 0.0, Anion Gap 9, Glomerular Filtration Rate > 60.0, Calcium Level 8.1L CBC/BMP Laboratory Tests 09/05/20 14:17 09/06/20 05:55 FSBS Laboratory Tests Test 09/05/20 09:03 09/05/20 14:32 Range/Units Bedside Glucose (Misc Panel) 189 190 70-105 MG/DL Assessment/Plan Date Seen The patient was seen on 09/06/20. Patient Summary This is a 49 y/o M POD1 s/p L PCNL. Doing well. His L nephrostomy catheter was removed this morning. Plan/VTE VTE Prophylaxis Ordered?: Yes VTE Exclusion Mechanical Proph: N/A:VTE Prophy Ordered Plan - d/c Jacob 1 hr after removal of nephrostomy catheter if urine remains pink or clearer - percocet prn pain - strict I/Os - ambulate - regular diet - discharge home after patient voids DAVID CANO MD Sep 06, 2020 08:43
[2020-09-06 10:00] VITALS: BP 118/82
--- NOTE | 2020-09-07 11:49 | DSES ---
DISCHARGE SUMMARY DATE OF ADMISSION: 09/05/2020 DATE OF DISCHARGE: 09/06/2020 ADMITTING DIAGNOSIS: Left kidney stones. DISCHARGE DIAGNOSIS: Left kidney stones. ADMITTING PHYSICIAN: Otf Tompkins MD. DISCHARGE PHYSICIAN: Otf Tompkins MD. PROCEDURES PERFORMED: Left percutaneous nephrolithotomy on September 05, 2020. HISTORY OF PRESENT ILLNESS: This is a 49-year-old male who was found to have 2 large kidney stones measuring up to 2 cm in size each. He was brought to the operating room for the above listed procedure and was admitted post-operatively. HOSPITAL COURSE: The patient was admitted to the hospital after undergoing the above listed procedure. His post-operative course was unremarkable. On the morning of post-operative day 1 all of his labs were within normal limits. Specifically his hemoglobin level was stable at 14.3 and his serum creatinine was 1.2. He has excellent urine output from his nephrostomy catheter as well as his Jacob catheter. We did remove his left nephrostomy catheter the morning of post-operative day 1. Subsequently his Jacob catheter was removed and he voided without any difficulty. He had good pain control. His diet was advanced and he tolerated a regular diet. He was therefore deemed ready for discharge home. He was discharged home on post-operative day 1 with the plan for him to follow up in the urology clinic in 3-4 weeks for stent removal.
== END 2020-09-06 14:00 | disposition home or self-care (01) | DRG 443 ==
LOC: M OR 08:30 → M MSPAV 15:28
PROVIDERS: ADMIT Urology; ATTEND Urology
PROC: 0TC03ZZ Extirpation of Matter from Right Kidney, Percutaneous Approach (ICD-10-PCS; principal; 2020-09-05 10:00)
DX: N20.0 Calculus of kidney (principal); I12.9 Hypertensive chronic kidney disease with stage 1 through stage 4 chronic kidney disease, or unspecified chronic kidney disease; N18.31 Chronic kidney disease, stage 3a; E11.9 Type 2 diabetes mellitus without complications; Z79.899 Other long term (current) drug therapy

== ENCOUNTER → 2020-10-01 | Outpatient (CLI) | payer BC ==
[~2020-10-01] MED LIST changes: -CLIN150C14 PO; +CLIN150C15 PO; -LR 1,000 ML IV ONE; -ceFAZolin SOD 2 GM in IV 1 EA IV ONE
--- NOTE | 2020-10-01 09:58 | REP ---
INDICATION: CALCULUS OF KIDNEY COMPARISON: None. TECHNIQUE: Supine view of the abdomen and pelvis. FINDINGS: Left ureteral stent in satisfactory position. Bilateral intrarenal calculi are identified. Bowel gas pattern is nonspecific. Skeletal structures are intact. IMPRESSION: Left ureteral stent in satisfactory position. Evidence for bilateral nephrolithiasis. <Electronically signed by Abiel Kerr > 10/01/20 0935
== END ==
LOC: M RAD 09:17
PROVIDERS: ATTEND Urology
DX: N20.0 Calculus of kidney (principal)

== ENCOUNTER → 2020-11-26 | Outpatient (REF) ==
[~2020-11-26] MED LIST changes: -LISI40TA PO; +LISI40TA4 PO
--- NOTE | 2020-11-26 08:19 | PFTRPT ---
Height: 70.00 Inches Weight: 200.00 Lbs BSA: 2.09 Diagnosis: [employer]EE [employer] DATE: 11/26/2020 ORDERING PHYSICIAN: Noemí Foss NP Pre and post bronchodilator studies have excellent technical quality. Forced vital capacity is normal. FEV1 is in proportion. Obstructive index is therefore normal. Expiratory limit of the flow-volume loop is normal. Bronchodilator response is not tested. Total lung capacity is normal. Residual volume generally in proportion. Diffusing capacity is normal. No hemoglobin available for correction. Airway resistance and conductance are normal. IMPRESSION: Normal study. MTDD
--- NOTE | 2020-11-26 08:40 | REP ---
INDICATION: [employer]- PFT TEST AFTER COMPARISON: 08/27/2020 TECHNIQUE: PA and lateral. FINDINGS: The mediastinum and cardiac silhouette are normal. The lung watts are clear and without acute consolidation, effusion, or pneumothorax. The skeletal structures are intact and normal. IMPRESSION: No acute cardiopulmonary process. <Electronically signed by Abiel Kerr > 11/26/20 0849
== END ==
LOC: M CARPUL 07:40 → EDSTATUS 08:00
PROVIDERS: ATTEND Nurse Practitioner Adult Health
DX: Z00.00 Encounter for general adult medical examination without abnormal findings (principal)

== ENCOUNTER → 2020-12-07 | Outpatient (CLI) | payer BC ==
[2020-12-07 07:22] LABS: BLOOD UREA NITROGEN 12 MG/DL (7-18); CALCIUM LEVEL 8.7 MG/DL (8.5-10.1); CARBON DIOXIDE LEVEL 28 MEQ/L (21-32); CHLORIDE LEVEL 104 MEQ/L (98-107); CREATININE FOR GFR 0.86 MG/DL (0.70-1.30); GLOMERULAR FILTRATION RATE > 60.0 (>56); GLUCOSE, FASTING 241 MG/DL (70-100); POTASSIUM SERUM 3.6 MEQ/L (3.5-5.1); SODIUM LEVEL 137 MEQ/L (136-145)
== END ==
LOC: M LAB 06:01
PROVIDERS: ATTEND Physician Assistant
DX: E11.9 Type 2 diabetes mellitus without complications (principal)

== ENCOUNTER 2021-02-03 21:22 | Emergency (ER) | payer BC ==
[~2021-02-03] VITALS: Ht 177.8 cm; Wt 91.8 kg
[2021-02-03] MEDS ORDERED: ASPIRIN 325 MG TAB PO ONE (21:45)
[2021-02-03] MEDS ORDERED: FAMOTIDINE 20 MG TAB PO ONE (21:45)
[2021-02-03] MEDS ORDERED: ONDANSETRON 4MG/2ML VIAL IV ONE (22:20)
[2021-02-03] MEDS ORDERED: TAMSULOSIN 0.4 MG CAP PO ONE (22:20)
[2021-02-03] MEDS ORDERED: KETOROLAC 30 MG/ML 1ML VIAL IV ONE (22:20)
--- NOTE | 2021-02-03 22:25 | REPVR ---
PROCEDURE INFORMATION: Exam: XR Chest Exam date and time: 02/03/2021 9:52 PM Age: 50 years old Clinical indication: Pain; Other: Chest; Additional info: Chest pain TECHNIQUE: Imaging protocol: XR of the chest. Views: 1 view. COMPARISON: CR Chest, 2 view PA, Lat 11/26/2020 7:47 AM FINDINGS: Cardiac silhouette is within normal limits. Aerated lungs are clear with no focal areas of consolidation, pleural effusion or overt failure. IMPRESSION: Examination limited by portable technique. No acute pulmonary process. Electronically signed by: Stanley Neal On 02/03/2021 22:25:07 PM
--- NOTE | 2021-02-03 22:47 | REPVR ---
PROCEDURE INFORMATION: Exam: CT Abdomen And Pelvis Without Contrast Exam date and time: 02/03/2021 10:35 PM Age: 50 years old Clinical indication: Abdominal pain; Additional info: Right flank pain TECHNIQUE: Imaging protocol: Computed tomography of the abdomen and pelvis without contrast. Radiation optimization: All CT scans at this facility use at least one of these dose optimization techniques: automated exposure control; mA and/or kV adjustment per patient size (includes targeted exams where dose is matched to clinical indication); or iterative reconstruction. COMPARISON: CT ABD PELVIS W/O CONTRAST 08/13/2020 8:52 PM FINDINGS: Lung bases are clear. No pleural or pericardial effusion. Within the limits of unenhanced examination, the liver, spleen, pancreas and adrenals are grossly normal. Gallbladder is moderately distended with no evidence of calcified gallstones. Atherosclerotic changes identified within the abdominal aorta and aortic branch vessels with no evidence of aneurysmal dilatation. Within the kidneys, there are no focal parenchymal abnormalities. There is moderate, asymmetric right perinephric stranding. There is moderate hydronephrosis of the right intrarenal collecting system, right renal pelvis and proximal to mid right ureter. There is moderate right periureteral stranding. Findings are due to at least a partially obstructing urolith in the distal right ureter at the level of the S2 sacral foramen. This measures up to 3.8 mm in diameter. Distal most right ureter is nondilated. There is a large, nonobstructing calculus within a right lower pole renal calyx measuring nearly 9 mm in diameter. There are 2 calcifications in the left renal pelvis measuring up to 9 mm in confluence. There is no evidence of left hydronephrosis, ureterolithiasis or obstructive uropathy. Small and large bowel loops are grossly normal. No evidence of enteric obstruction. Pelvic organs are grossly normal. No significant free fluid in the abdomen or pelvis. IMPRESSION: Moderate, asymmetric hydronephrosis of the right intrarenal collecting system and proximal to mid right ureter. Moderate asymmetric right perinephric stranding. Findings are due to at least a partially obstructing urolith in the distal right ureter at the level of the S2 sacral foramen measuring up to 3.8 mm. There are additional nonobstructing calcifications within the intrarenal collecting system of the kidneys bilaterally. No evidence of left obstructive uropathy. No other acute intra-abdominal or pelvic process on this unenhanced examination. Electronically signed by: Stanley Neal On 02/03/2021 22:46:54 PM
[2021-02-03 23:29] LABS: BASO # 0.1 10^3/uL (0.0-0.2); BASO % 0.6 % (0.0-1.0); HEMATOCRIT 47.1 % (42.0-52.0); HEMOGLOBIN 15.9 g/dl (13.5-17.5); LYMPH # 0.7 10^3/uL (1.5-5.0); MEAN CORPUSCULAR HEMOGLOBIN 28.7 pg (27.0-33.0); MEAN CORPUSCULAR HGB CONC 33.8 g/dl (32.0-36.5); MONO # 0.5 10^3/uL (0.0-0.8); MONO % 3.8 % (2.0-8.0); NEUTROPHILS # 12.9 10^3/uL (1.5-8.5); NEUTROPHILS % 89.9 % (36.0-66.0); PLATELET COUNT, AUTOMATED 259 10^3/uL (150-450); RED BLOOD COUNT 5.54 10^6/uL (4.30-6.10); WHITE BLOOD COUNT 14.3 10^3/uL (4.0-10.0)
[2021-02-03 23:46] LABS: INR 0.92; PROTHROMBIN TIME 12.6 SECONDS (12.5-14.3)
[2021-02-03 23:57] LABS: BLOOD UREA NITROGEN 18 MG/DL (7-18); CALCIUM LEVEL 9.5 MG/DL (8.5-10.1); CARBON DIOXIDE LEVEL 23 MEQ/L (21-32); CHLORIDE LEVEL 104 MEQ/L (98-107); CREATININE FOR GFR 1.24 MG/DL (0.70-1.30); GLOMERULAR FILTRATION RATE > 60.0 (>56); GLUCOSE, FASTING 307 MG/DL (70-100); LIPASE 86 U/L (73-393); MAGNESIUM LEVEL 1.7 MG/DL (1.8-2.4); POTASSIUM SERUM 4.1 MEQ/L (3.5-5.1); SODIUM LEVEL 137 MEQ/L (136-145)
[2021-02-04] MEDS ORDERED: MORPHINE 4 MG/ML 1ML VIAL/SYRINGE (J2270) IV ONE (00:45)
[2021-02-04] MEDS ORDERED: KETO10TAB PO (01:45)
[2021-02-04] MEDS ORDERED: TAMS1CAP17 PO (01:45)
[2021-02-04] MEDS ORDERED: CYCL-707 PO (01:46)
[2021-02-04 02:17] LABS: CK-MB VALUE MASS < 1.0 NG/ML (<3.6); CPK CREATINE PHOSPHOKINASE 94 U/L (39-308); MB/CK RELATIVE INDEX 1.06 (< OR =4); TROPONIN I < 0.02 NG/ML (< 0.10)
[2021-02-04 03:20] VITALS: BP 156/92
--- NOTE | 2021-02-04 13:29 | ECGEPIP ---
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
--- NOTE | 2021-02-04 13:32 | ECGEPIP ---
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
== END 2021-02-04 03:40 | disposition home or self-care (01) ==
LOC: M ED 21:22
DX: N13.2 Hydronephrosis with renal and ureteral calculous obstruction (principal); R07.9 Chest pain, unspecified; E11.9 Type 2 diabetes mellitus without complications; I10 Essential (primary) hypertension; Z79.899 Other long term (current) drug therapy
CPT/HCPCS: 71045; 74176; 80048; 81001; 82550; 82553; 83690; 83735; 84484; 85025; 85610; 85730; 93005; 93041; 94760; 96374; 96375; 99285; J1885; J2270; J2405

== ENCOUNTER → 2021-02-14 | Outpatient (CLI) | payer BC ==
[~2021-02-14] MED LIST changes: +CYCL-707 PO; +TAMS1CAP17 PO
--- NOTE | 2021-02-14 13:19 | REP ---
INDICATION: CALCULUS OF KIDNEY COMPARISON: 10/01/2020 TECHNIQUE: Supine view of the abdomen and pelvis. FINDINGS: Bilateral nephrolithiasis increased from prior examination. Previous left ureteral stent has been removed. Bowel gas pattern is nonspecific. No organomegaly. Skeletal structures are intact and stable. Phleboliths noted in the pelvis. IMPRESSION: Increased bilateral nephrolithiasis. <Electronically signed by Abiel Kerr > 02/14/21 [id number]
== END ==
LOC: M RAD 12:33
PROVIDERS: ATTEND Urology
DX: N20.0 Calculus of kidney (principal)

== ENCOUNTER → 2021-02-15 | Outpatient (CLI) | payer BC ==
[~2021-02-15] MED LIST changes: +METF-839 PO; +POTA4.25 PO
[2021-02-15 07:55] LABS: HEMATOCRIT 48.1 % (42.0-52.0); HEMOGLOBIN 15.9 g/dl (13.5-17.5); MEAN CORPUSCULAR HEMOGLOBIN 28.5 pg (27.0-33.0); MEAN CORPUSCULAR HGB CONC 33.1 g/dl (32.0-36.5); MEAN CORPUSCULAR VOLUME 86.2 fl (80.0-96.0); PLATELET COUNT, AUTOMATED 258 10^3/uL (150-450); RED BLOOD COUNT 5.58 10^6/uL (4.30-6.10); WHITE BLOOD COUNT 7.4 10^3/uL (4.0-10.0)
[2021-02-15 08:24] LABS: BLOOD UREA NITROGEN 13 MG/DL (7-18); CALCIUM LEVEL 8.9 MG/DL (8.5-10.1); CARBON DIOXIDE LEVEL 28 MEQ/L (21-32); CHLORIDE LEVEL 103 MEQ/L (98-107); CREATININE FOR GFR 0.92 MG/DL (0.70-1.30); GLOMERULAR FILTRATION RATE > 60.0 (>56); GLUCOSE, FASTING 232 MG/DL (70-100); POTASSIUM SERUM 4.5 MEQ/L (3.5-5.1); SODIUM LEVEL 137 MEQ/L (136-145)
== END ==
LOC: M LAB 06:33
PROVIDERS: ATTEND Urology
DX: N20.0 Calculus of kidney (principal)

== ENCOUNTER → 2021-02-16 | Outpatient (CLI) | payer BC | LOC: M LABSMTC 08:11 | PROVIDERS: ATTEND Anesthesiology | DX: Z20.828 Contact with and (suspected) exposure to other viral communicable diseases (principal); Z11.59 Encounter for screening for other viral diseases ==

== ENCOUNTER 2021-02-21 08:56 | Day surgery (SDC) | payer BC ==
[~2021-02-21] VITALS: Ht 177.8 cm; Wt 91.1 kg
[~2021-02-21 08:56] MED LIST changes: +LR 1,000 ML IV ONE; +ceFAZolin SOD 2 GM in IV 1 EA IV ONE
--- NOTE | 2021-02-21 09:53 | REP ---
INDICATION: KIDNEY STONE KUB BEFORE SDC COMPARISON: 02/14/2021 TECHNIQUE: Supine view of the abdomen and pelvis. FINDINGS: Moderate bilateral nephrolithiasis again noted and unchanged. Bowel gas pattern is nonspecific and without obstruction or perforation. No organomegaly. Phleboliths suggested in the pelvis. Skeletal structures intact. IMPRESSION: Bilateral nephrolithiasis. <Electronically signed by Abiel Kerr > 02/21/21 [id number]
[2021-02-21] MEDS ORDERED: propofoL 200 MG/20 ML VIAL As Ordered ONE ×2 (12:00→12:31)
[2021-02-21] MEDS ORDERED: MIDAZOLAM INJ 2MG/2ML VIAL (J2250 PER 1MG) As Ordered ONE (12:00)
[2021-02-21] MEDS ORDERED: fentaNYL 100 MCG/2 ML INJECTION (J3010) As Ordered ONE (12:00)
[2021-02-21] MEDS ORDERED: LIDOCAINE 2% 100MG/5ML SDV (FOR ANES.) As Ordered ONE (12:00)
[2021-02-21] MEDS ORDERED: FLOM0.4C39 PO (12:40)
[2021-02-21] MEDS ORDERED: OXYC1TAB23 PO (12:40)
[2021-02-21 14:00] VITALS: BP 170/98
--- NOTE | 2021-02-21 14:23 | RO ---
OPERATIVE NOTE DATE OF OPERATION: 02/21/2021 PREOPERATIVE DIAGNOSIS: Kidney stones. POSTOPERATIVE DIAGNOSIS: Kidney stones. PROCEDURE: Left extracorporeal shock wave lithotripsy. SURGEON: Otf Tompkins MD BIOMEDICAL PHOTOGRAPHER: None. ANESTHESIA: MAC. OPERATIVE INDICATIONS: This is a 50-year-old male with a history of kidney stones, recently found to have bilateral stones measuring around 1 cm in size. He is brought to the operating room for treatment on his left side first. DESCRIPTION OF PROCEDURE: The patient was brought to the operating room and MAC anesthesia was administered. Prophylactic antibiotics were infused. He was placed in the supine position in preparation for left-sided extracorporeal shock wave lithotripsy. Fluoroscopy was utilized to monitor stone position and fragmentation throughout the procedure. Shock waves were delivered to the left-sided kidney stone ungated. There were no arrhythmias. The stone appeared to fragment well. After 2500 shocks the procedure was concluded. The patient was awakened from anesthesia and transported to the recovery room in stable condition. ESTIMATED BLOOD LOSS: 0 mL. COMPLICATIONS: None. SPECIMEN: None. PLAN: The patient will follow up in urology clinic in a few weeks with imaging prior to assess for residual stone burden. Assuming that the stone fragments have cleared out well from the left side we will then turn attention to the right side for extracorporeal shock wave lithotripsy. VITA
== END 2021-02-21 14:05 | disposition home or self-care (01) ==
LOC: M SDC 08:56 → M RAD 14:05
PROVIDERS: ATTEND Urology
DX: N20.0 Calculus of kidney (principal); K21.9 Gastro-esophageal reflux disease without esophagitis; N40.0 Benign prostatic hyperplasia without lower urinary tract symptoms; F41.9 Anxiety disorder, unspecified; E11.9 Type 2 diabetes mellitus without complications; I10 Essential (primary) hypertension; G47.30 Sleep apnea, unspecified; Z79.899 Other long term (current) drug therapy
CPT/HCPCS: 50590; 74018; J0690; J2250; J3010

== ENCOUNTER → 2021-03-13 | Outpatient (CLI) | payer BC ==
[~2021-03-13] MED LIST changes: -LR 1,000 ML IV ONE; -ceFAZolin SOD 2 GM in IV 1 EA IV ONE
--- NOTE | 2021-03-13 16:36 | REP ---
INDICATION: KIDNEY STONES. COMPARISON: 02/21/2021 FINDINGS: The calcifications seen superimposed over the interpolar region of the right kidney are unchanged. The calcifications seen superimposed over the interpolar region of the left kidney are no longer present. There are bilateral pelvic phleboliths which are unchanged. There are no new abnormal calcifications. IMPRESSION: As above <Electronically signed by Dylan Giles > 03/13/21 [id number]
== END ==
LOC: M RAD 06:20
PROVIDERS: ATTEND Urology
DX: N20.0 Calculus of kidney (principal)

== ENCOUNTER → 2021-03-14 | Outpatient (REF) | payer BC | LOC: M SMT 13:17 | PROVIDERS: ATTEND Nurse Practitioner Family | DX: N20.0 Calculus of kidney (principal) ==

== ENCOUNTER → 2021-04-12 | Outpatient (CLI) | payer BC ==
[~2021-04-12] MED LIST changes: +METF10004 PO; +SUMA25TA3 PO
[2021-04-12 06:54] LABS: HEMATOCRIT 48.2 % (42.0-52.0); HEMOGLOBIN 16.1 g/dl (13.5-17.5); MEAN CORPUSCULAR HEMOGLOBIN 28.5 pg (27.0-33.0); MEAN CORPUSCULAR HGB CONC 33.4 g/dl (32.0-36.5); MEAN CORPUSCULAR VOLUME 85.5 fl (80.0-96.0); PLATELET COUNT, AUTOMATED 263 10^3/uL (150-450); RED BLOOD COUNT 5.64 10^6/uL (4.30-6.10); WHITE BLOOD COUNT 6.2 10^3/uL (4.0-10.0)
[2021-04-12 07:05] LABS: INR 0.85; PROTHROMBIN TIME 11.8 SECONDS (12.5-14.3)
[2021-04-12 07:06] LABS: PARTIAL THROMBOPLASTIN TIME 28.5 SECONDS (24.2-38.5)
[2021-04-12 08:01] LABS: BLOOD UREA NITROGEN 12 MG/DL (7-18); CARBON DIOXIDE LEVEL 28 MEQ/L (21-32); CHLORIDE LEVEL 105 MEQ/L (98-107); CREATININE FOR GFR 0.95 MG/DL (0.70-1.30); GLOMERULAR FILTRATION RATE > 60.0 (>56); GLUCOSE, FASTING 197 MG/DL (70-100); POTASSIUM SERUM 4.4 MEQ/L (3.5-5.1); SODIUM LEVEL 138 MEQ/L (136-145)
== END ==
LOC: M LAB 06:13
PROVIDERS: ATTEND Nurse Practitioner Family
DX: N20.0 Calculus of kidney (principal)

== ENCOUNTER → 2021-04-12 | Outpatient (CLI) | payer BC ==
[2021-04-12 07:12] LABS: HEMOGLOBIN A1c 8.7 %
[2021-04-12 07:23] LABS: BLOOD UREA NITROGEN 13 MG/DL (7-18); CALCIUM LEVEL 8.8 MG/DL (8.5-10.1); CARBON DIOXIDE LEVEL 27 MEQ/L (21-32); CHLORIDE LEVEL 103 MEQ/L (98-107); CREATININE FOR GFR 0.95 MG/DL (0.70-1.30); GLOMERULAR FILTRATION RATE > 60.0 (>56); GLUCOSE, FASTING 197 MG/DL (70-100); POTASSIUM SERUM 4.3 MEQ/L (3.5-5.1); SODIUM LEVEL 135 MEQ/L (136-145)
== END ==
LOC: M LAB 06:16
PROVIDERS: ATTEND Physician Assistant
DX: E11.9 Type 2 diabetes mellitus without complications (principal)

== ENCOUNTER → 2021-04-13 | Outpatient (CLI) | payer BC | LOC: M LABSMTC 09:56 | PROVIDERS: ATTEND Anesthesiology | DX: Z20.828 Contact with and (suspected) exposure to other viral communicable diseases (principal); Z11.59 Encounter for screening for other viral diseases ==

== ENCOUNTER 2021-04-18 12:21 | Day surgery (SDC) | payer BC ==
[~2021-04-18] VITALS: Ht 177.8 cm; Wt 88.4 kg
[~2021-04-18 12:21] MED LIST changes: +LIDOCAINE 1% MDV 20ML VIAL SQ PRN; +LR 1,000 ML IV ONE; +ceFAZolin SOD 2 GM in IV 1 EA IV ONE
--- NOTE | 2021-04-18 12:42 | REP ---
INDICATION: KIDNEY STONE- KUB PRIOR TO SDC. COMPARISON: None. FINDINGS: KUB shows the intestinal gas pattern to be nonspecific. The organ silhouettes insofar as delineated are unremarkable. There is no evidence of free intraperitoneal air. There is no change in appearance of the right nephric silhouette. The calcifications seen previously are again noted and appear unchanged. There are pelvic phleboliths status quo. There is no change in the osseous structures IMPRESSION: No evidence of significant change. <Electronically signed by Dylan Giles > 04/18/21 0021
[2021-04-18] MEDS ORDERED: MIDAZOLAM INJ 2MG/2ML VIAL (J2250 PER 1MG) As Ordered ONE (13:20)
[2021-04-18] MEDS ORDERED: fentaNYL 100 MCG/2 ML INJECTION (J3010) As Ordered ONE (13:21)
[2021-04-18] MEDS ORDERED: ONDANSETRON 4MG/2ML VIAL As Ordered ONE (13:22)
[2021-04-18] MEDS ORDERED: dexameTHASONE 4 MG/ML 1ML VIAL (J1100 PER 1MG) As Ordered ONE (13:22)
[2021-04-18] MEDS ORDERED: propofoL 200 MG/20 ML VIAL As Ordered ONE (14:20)
[2021-04-18] MEDS ORDERED: FLOM0.4C39 PO (15:06)
[2021-04-18 16:30] VITALS: BP 136/88
--- NOTE | 2021-04-18 19:18 | RO ---
OPERATIVE NOTE DATE OF OPERATION: 04/18/2021 PREOPERATIVE DIAGNOSIS: Right kidney stone. POSTOPERATIVE DIAGNOSIS: Right kidney stone. PROCEDURES: Right extracorporeal shock wave lithotripsy. SURGEON: Otf Tompkins MD. HEALTH SPECIALIST: None. ANESTHESIA: MAC. OPERATIVE INDICATIONS: This is a 50-year-old male who was recently found to have bilateral kidney stones measuring a little bit over 1 cm in size on CAT scan. He underwent a left-sided extracorporeal shock wave lithotripsy approximately six weeks ago and those stones have cleared out. He is here for treatment on the right side. DESCRIPTION OF PROCEDURE: The patient was brought to the operating room and MAC anesthesia was induced. Prophylactic antibiotics were infused. He was placed in the supine position in preparation for a right-sided extracorporeal shock wave lithotripsy. Fluoroscopy was utilized to monitor stone position and fragmentation throughout the procedure. Shock waves were then delivered to the right-sided kidney stone ungated. There were no arrhythmias. The stones did appear to fragment well. After 2500 shocks, the procedure was concluded. The patient was then awakened from anesthesia and transported to the recovery room in stable condition. ESTIMATED BLOOD LOSS: 0 mL. COMPLICATIONS: None. SPECIMEN: None. PLAN: The patient will follow up in the Urology Clinic in a few weeks with imaging prior to assess for residual stone burden.
== END 2021-04-18 16:45 | disposition home or self-care (01) ==
LOC: M SDC 12:21
PROVIDERS: ATTEND Urology
DX: N20.0 Calculus of kidney (principal); I10 Essential (primary) hypertension; G47.33 Obstructive sleep apnea (adult) (pediatric); E11.9 Type 2 diabetes mellitus without complications; F17.218 Nicotine dependence, cigarettes, with other nicotine-induced disorders; K21.9 Gastro-esophageal reflux disease without esophagitis; K59.00 Constipation, unspecified; F41.9 Anxiety disorder, unspecified; Z79.84 Long term (current) use of oral hypoglycemic drugs; Z79.899 Other long term (current) drug therapy; Z91.018 Allergy to other foods
CPT/HCPCS: 50590; 74018; J0690; J1100; J2250; J2405; J3010

== ENCOUNTER → 2021-07-30 | Outpatient (CLI) | payer BC ==
[~2021-07-30] MED LIST changes: -CLIN150C15 PO; +CLIN150C17 PO; -LIDOCAINE 1% MDV 20ML VIAL SQ PRN; -LR 1,000 ML IV ONE; -ceFAZolin SOD 2 GM in IV 1 EA IV ONE
--- NOTE | 2021-07-30 17:13 | REP ---
INDICATION: CALCULUS OF KIDNEY. COMPARISON: 04/18/2021 TECHNIQUE: An AP view of the abdomen was obtained. FINDINGS: The large amorphous calcifications previous seen in the region the right renal pelvis are no longer identified. An irregular calcification near the left renal hilus is now present not seen on earlier study. IMPRESSION: Interval change in calcifications bilaterally as above. <Electronically signed by Stanley Amezcua > 07/30/21 [id number]
== END ==
LOC: M RAD 15:48
PROVIDERS: ATTEND Nurse Practitioner Women's Health
DX: N20.0 Calculus of kidney (principal)

== ENCOUNTER → 2021-12-02 | Outpatient (REF) | LOC: M CARPUL 09:30 → EDSTATUS 10:00 | PROVIDERS: ATTEND Nurse Practitioner Adult Health | DX: Z02.89 Encounter for other administrative examinations (principal) ==

== ENCOUNTER 2021-12-18 12:14 | Emergency (ER) | payer BC ==
[~2021-12-18] VITALS: Ht 177.8 cm; Wt 87.5 kg
[2021-12-18 14:18] LABS: BASO # 0.1 10^3/uL (0.0-0.2); BASO % 0.4 % (0.0-1.0); EOS % 0.1 % (0.0-3.0); HEMATOCRIT 51.5 % (42.0-52.0); HEMOGLOBIN 17.9 g/dl (13.5-17.5); LYMPH # 1.2 10^3/uL (1.5-5.0); LYMPH % 8.3 % (24.0-44.0); MEAN CORPUSCULAR HEMOGLOBIN 28.7 pg (27.0-33.0); MEAN CORPUSCULAR HGB CONC 34.8 g/dl (32.0-36.5); MEAN CORPUSCULAR VOLUME 82.7 fl (80.0-96.0); MONO # 0.8 10^3/uL (0.0-0.8); NEUTROPHILS # 11.7 10^3/uL (1.5-8.5); NEUTROPHILS % 84.6 % (36.0-66.0); PLATELET COUNT, AUTOMATED 200 10^3/uL (150-450); RED BLOOD COUNT 6.23 10^6/uL (4.30-6.10); WHITE BLOOD COUNT 13.9 10^3/uL (4.0-10.0)
[2021-12-18 14:44] LABS: ALBUMIN 3.6 GM/DL (3.2-5.2); BILIRUBIN,DIRECT 0.2 MG/DL (0.0-0.2); BILIRUBIN,TOTAL 0.9 MG/DL (0.2-1.0); TOTAL PROTEIN 7.1 GM/DL (6.4-8.2)
[2021-12-18] MEDS ORDERED: METOPROLOL TART 25 MG TABLET PO ONE (17:35)
[2021-12-18 17:41] VITALS: BP 123/71
[2021-12-18 18:04] VITALS: BP 139/100
[2021-12-18] MEDS ORDERED: AZIT500T5 PO (20:19)
[2021-12-18] MEDS ORDERED: AZITHROMYCIN 250MG TABLET PO ONE (20:20)
== END 2021-12-18 20:26 | disposition home or self-care (01) ==
LOC: M ED 12:14
DX: K62.5 Hemorrhage of anus and rectum (principal); N20.0 Calculus of kidney; A04.4 Other intestinal Escherichia coli infections; A02.9 Salmonella infection, unspecified; E11.9 Type 2 diabetes mellitus without complications; I10 Essential (primary) hypertension; G43.909 Migraine, unspecified, not intractable, without status migrainosus; G47.33 Obstructive sleep apnea (adult) (pediatric); F17.200 Nicotine dependence, unspecified, uncomplicated; Z79.899 Other long term (current) drug therapy

== ENCOUNTER → 2022-01-06 | Outpatient (CLI) | payer BC ==
[~2022-01-06] MED LIST changes: +AZIT500T5 PO; +ZITHTAB PO
[2022-01-06 17:58] LABS: AMORPHOUS SEDIMENT SMALL (NEGATIVE); APPEARANCE, URINE HAZY (CLEAR); BACTERIA, URINE AUTO NEGATIVE (NEGATIVE); BILIRUBIN, URINE AUTO NEGATIVE (NEGATIVE); BLOOD, URINE BLOOD 1+ (NEGATIVE); COLOR, URINE YELLOW (YELLOW); GLUCOSE, URINE (UA) AUTO 3+ mg/dL (NEGATIVE); KETONE, URINE AUTO NEGATIVE (NEGATIVE); LEUKOCYTE ESTERASE, URINE AUTO NEGATIVE (NEGATIVE); MUCUS, URINE SMALL (NEGATIVE); NITRITE, URINE AUTO NEGATIVE (NEGATIVE); PROTEIN, URINE AUTO 1+ mg/dL (NEGATIVE); RBC, URINE AUTO 62 /HPF (0-3); SPECIFIC GRAVITY URINE AUTO 1.015 (1.002-1.035); SQUAMOUS EPITHELIAL CELL UR AU 0 /HPF (0-6); WBC, URINE AUTO 2 /HPF (0-3)
[2022-01-06 18:04] LABS: BLOOD UREA NITROGEN 17 MG/DL (7-18); CALCIUM LEVEL 9.6 MG/DL (8.5-10.1); CARBON DIOXIDE LEVEL 26 MEQ/L (21-32); CHLORIDE LEVEL 102 MEQ/L (98-107); GLOMERULAR FILTRATION RATE > 60.0 (>56); GLUCOSE, FASTING 184 MG/DL (70-100); POTASSIUM SERUM 3.9 MEQ/L (3.5-5.1); SODIUM LEVEL 137 MEQ/L (136-145)
== END ==
LOC: M RAD 16:02
PROVIDERS: ATTEND Physician Assistant
DX: N20.0 Calculus of kidney (principal)

== ENCOUNTER → 2022-01-08 | Outpatient (CLI) | payer BC ==
[~2022-01-08] MED LIST changes: +HYDR-3490 PO; +JARD1TAB PO; +POTA10TA17 PO
== END ==
LOC: M LAB 15:47
PROVIDERS: ATTEND Internal Medicine Hematology
DX: Z01.810 Encounter for preprocedural cardiovascular examination (principal)

== ENCOUNTER → 2022-01-10 | Outpatient (CLI) | payer BC | LOC: M LABSMTC 09:36 | PROVIDERS: ATTEND Anesthesiology | DX: Z01.812 Encounter for preprocedural laboratory examination (principal) ==

== ENCOUNTER 2022-01-15 08:43 | Day surgery (SDC) | payer BC ==
[~2022-01-15] VITALS: Ht 177.8 cm; Wt 86.2 kg
[~2022-01-15 08:43] MED LIST changes: +LIDOCAINE 1% MDV 20ML VIAL SQ PRN; +LR 1,000 ML IV ONE; +ceFAZolin SOD 2 GM in IV 1 EA IV ONE
[2022-01-15] MEDS ORDERED: fentaNYL 100 MCG/2 ML INJECTION As Ordered ONE (09:13)
[2022-01-15] MEDS ORDERED: propofoL 200 MG/20 ML VIAL As Ordered ONE (09:13)
[2022-01-15] MEDS ORDERED: MIDAZOLAM INJ 2MG/2ML VIAL (J2250 PER 1MG) As Ordered ONE (09:13)
[2022-01-15] MEDS ORDERED: LIDOCAINE 2% 100MG/5ML SDV (FOR ANES.) As Ordered ONE (09:13)
[2022-01-15] MEDS ORDERED: ONDANSETRON 4MG/2ML VIAL As Ordered ONE (09:13)
[2022-01-15] MEDS ORDERED: dexameTHASONE 4 MG/ML 1ML VIAL (J1100 PER 1MG) As Ordered ONE (09:13)
[2022-01-15] MEDS ORDERED: HumaLOG INSULIN (NovoLOG) PER UNIT SC ONE ×2 (10:05→12:25)
[2022-01-15] MEDS ORDERED: ISOVUE-300 61% 50ML VIAL As Ordered ONE (10:08)
[2022-01-15] MEDS ORDERED: METOCLOPRAMIDE INJ 10MG/2ML VIAL (J2765 PER 1) As Ordered ONE (10:23)
[2022-01-15] MEDS ORDERED: ACETAMINOPHEN 1000MG 100ML IV BTL (OFIRMEV) (J0131 PER 10MG) As Ordered ONE ×2 (10:36→12:40)
[2022-01-15] MEDS ORDERED: PHENYLephrine 500MCG 5ML (100MCG/ML) SYRINGE As Ordered ONE (10:54)
[2022-01-15] MEDS ORDERED: ePHEDrine SULFATE 25 MG/5 ML(5MG/ML) SYRINGE As Ordered ONE ×2 (10:54→11:05)
[2022-01-15] MEDS ORDERED: FLOM0.4C39 PO (12:14)
[2022-01-15] MEDS ORDERED: oxyCODONE 5MG TAB PO PRN (12:25)
[2022-01-15] MEDS ORDERED: fentaNYL 100 MCG/2 ML INJECTION IV PRN (12:25)
[2022-01-15] MEDS ORDERED: LR 1,000 ML IV SCH (12:25)
[2022-01-15] MEDS ORDERED: ONDANSETRON 4MG/2ML VIAL IV PRN (12:25)
[2022-01-15] MEDS ORDERED: PERCOCET 5MG/325MG TAB PO PRN (12:50)
[2022-01-15 13:00] VITALS: BP 153/81
[2022-01-20 15:10] LABS: CA Hydro Phos 90 % (.); Ca Ox Monohydrate 10 % (.); Size 4x3 mm (.)
== END 2022-01-15 13:23 | disposition home or self-care (01) ==
LOC: M SDC 08:43
PROVIDERS: ATTEND Urology
DX: N20.0 Calculus of kidney (principal); I10 Essential (primary) hypertension; E11.9 Type 2 diabetes mellitus without complications; K21.9 Gastro-esophageal reflux disease without esophagitis; F41.9 Anxiety disorder, unspecified; G43.909 Migraine, unspecified, not intractable, without status migrainosus; G47.30 Sleep apnea, unspecified; Z79.899 Other long term (current) drug therapy; F17.218 Nicotine dependence, cigarettes, with other nicotine-induced disorders; Z79.84 Long term (current) use of oral hypoglycemic drugs; Z91.018 Allergy to other foods
CPT/HCPCS: 52356; 74420; 82365; 93005; C1769; C1894; C2617; J0131; J0690; J1815; J2250; J2370; J2405; J2765; J3010; Q9967

== ENCOUNTER → 2022-01-27 | Outpatient (REF) | payer BC ==
[~2022-01-27] MED LIST changes: -LIDOCAINE 1% MDV 20ML VIAL SQ PRN; -LR 1,000 ML IV ONE; -ceFAZolin SOD 2 GM in IV 1 EA IV ONE
[2022-01-27 17:53] LABS: APPEARANCE, URINE MANUAL CLOUDY (CLEAR); COLOR, URINE MANUAL RED (YELLOW)
[2022-01-27 17:55] LABS: BILIRUBIN, URINE MANUAL NEGATIVE (NEGATIVE); BLOOD URINE MANUAL POSITIVE (NEGATIVE); GLUCOSE, URINE (UA) MANUAL 3+(500 MG/DL) mg/dL (NEGATIVE); KETONE, URINE MANUAL NEGATIVE (NEGATIVE); LEUKOCYTE ESTERASE, URINE MAN POSITIVE (NEGATIVE); NITRITE, URINE MANUAL NEGATIVE (NEGATIVE); PROTEIN, URINE MANUAL 3+ mg/dL (NEGATIVE); SPECIFIC GRAVITY,URINE MANUAL 1.025 (1.002-1.035); UROBILINOGEN, URINE MANUAL NORMAL (NORMAL)
[2022-01-27 20:06] LABS: RBC, URINE TNTC /hpf (0-3); SQUAMOUS EPITHELIAL CELL URINE NONE SEEN /hpf (SMALL AMT); WBC, URINE 30-40 /hpf (0-3)
[2022-01-27 20:07] LABS: BACTERIA, URINE NONE SEEN; MUCUS, URINE MOD AMOUNT (NEGATIVE); OTHER CRYSTALS, URINE UNIDENTIFIED /hpf
[2022-01-27 20:08] LABS: HYALINE CAST, URINE NONE SEEN /lpf (0-1)
== END ==
LOC: M SMT 16:57
PROVIDERS: ATTEND Nurse Practitioner Women's Health
DX: R31.0 Gross hematuria (principal)

== ENCOUNTER → 2022-11-17 | Outpatient (REF) ==
[~2022-11-17] MED LIST changes: +POTA-150 PO; -POTA10TA17 PO
== END ==
LOC: M LABSMTC 08:36
PROVIDERS: ATTEND Family Medicine
DX: Z11.52 Encounter for screening for COVID-19 (principal)

== ENCOUNTER → 2022-12-22 | Outpatient (REF) | LOC: M CARPUL 07:45 | PROVIDERS: ATTEND Nurse Practitioner Adult Health | DX: Z02.1 Encounter for pre-employment examination (principal) ==

== ENCOUNTER → 2023-12-30 | Outpatient (REF) | LOC: M CARPUL 12:42 | PROVIDERS: ATTEND Nurse Practitioner Adult Health | DX: Z02.1 Encounter for pre-employment examination (principal) ==

== ENCOUNTER → 2024-03-01 | Outpatient (REF) | payer BC ==
[~2024-03-01] MED LIST changes: +ONDA-282 PO; -ONDA4TAB6 PO
[2024-03-01 18:16] LABS: TOTAL 25(OH) VITAMIN D 11.5 NG/ML (20.0-100.0)
[2024-03-01 18:18] LABS: ALBUMIN 3.6 G/DL (3.2-5.2); ALKALINE PHOSPHATASE 108 U/L (46-116); ALT/SGPT 25 U/L (7.0-40); AST/SGOT 11 U/L (<34); BILIRUBIN,TOTAL 0.7 MG/DL (0.3-1.2); BLOOD UREA NITROGEN 20 MG/DL (9-23); CALCIUM LEVEL 9.1 MG/DL (8.5-10.1); CARBON DIOXIDE LEVEL 24 MMOL/L (20-31); CHLORIDE LEVEL 107 MMOL/L (98-107); CHOLESTEROL LEVEL 126 MG/DL (<200); CHOLESTEROL RISK RATIO 5.62 (<5); CREATININE FOR GFR 0.97 MG/DL (0.70-1.30); GLOMERULAR FILTRATION RATE > 60.0 (>56); GLUCOSE, FASTING 106 MG/DL (60-100); HDL CHOLESTEROL 22.4 MG/DL (>40); NON-HDL-C 103.6 MG/DL; POTASSIUM SERUM 4.6 MMOL/L (3.5-5.1); SODIUM LEVEL 138 MMOL/L (136-145); TOTAL PROTEIN 6.7 G/DL (5.7-8.2); TRIGLYCERIDES LEVEL 198 MG/DL (<150)
== END ==
LOC: M LAB REF 16:39
PROVIDERS: ATTEND Physician Assistant
DX: I25.10 Atherosclerotic heart disease of native coronary artery without angina pectoris (principal); E55.9 Vitamin D deficiency, unspecified

== ENCOUNTER → 2024-03-08 | Outpatient (REF) | payer BC ==
[2024-03-08 12:23] LABS: APPEARANCE, URINE HAZY (CLEAR); BACTERIA, URINE AUTO NEGATIVE (NEGATIVE); BILIRUBIN, URINE AUTO NEGATIVE (NEGATIVE); BLOOD, URINE BLOOD 2+ (NEGATIVE); COLOR, URINE YELLOW (YELLOW); GLUCOSE, URINE (UA) AUTO 3+ mg/dL (NEGATIVE); KETONE, URINE AUTO NEGATIVE (NEGATIVE); LEUKOCYTE ESTERASE, URINE AUTO NEGATIVE (NEGATIVE); MUCUS, URINE SMALL (NEGATIVE); NITRITE, URINE AUTO NEGATIVE (NEGATIVE); PROTEIN, URINE AUTO 1+ mg/dL (NEGATIVE); RBC, URINE AUTO 85 /HPF (0-3); SPECIFIC GRAVITY URINE AUTO 1.027 (1.002-1.035); SQUAMOUS EPITHELIAL CELL UR AU 0 /HPF (0-6); WBC, URINE AUTO 2 /HPF (0-3)
[2024-03-08 13:05] LABS: CREATININE, URINE 269.8 MG/DL
== END ==
LOC: M LAB REF 11:34
PROVIDERS: ATTEND Physician Assistant
DX: E11.9 Type 2 diabetes mellitus without complications (principal)

== ENCOUNTER 2024-06-23 12:12 | Emergency (ER) | payer OTHER, BC ==
[~2024-06-23] VITALS: Ht 177.8 cm; Wt 86.4 kg
[2024-06-23] MEDS ORDERED: DULA3PEN (12:38)
[2024-06-23] MEDS ORDERED: ASPI-226 (12:38)
[2024-06-23] MEDS ORDERED: LANTINJ4 (12:38)
[2024-06-23] MEDS ORDERED: BISO10TA13 (12:38)
[2024-06-23] MEDS ORDERED: LOSA50TA28 (12:38)
[2024-06-23] MEDS ORDERED: OMEP-173 (12:38)
[2024-06-23] MEDS ORDERED: PRAS10TA2 (12:38)
[2024-06-23] MEDS ORDERED: ATOR80TA59 (12:38)
[2024-06-23] MEDS: DERMABOND TOPICAL SKIN ADHESIVE TOP ONE (14:35)
[2024-06-23] MEDS: CEPHALEXIN 500 MG CAP PO ONE (14:36)
[2024-06-23] MEDS ORDERED: CEPH500C PO (14:42)
[2024-06-23 14:54] VITALS: BP 167/98; TEMP 97.8; O2SAT 96
== END 2024-06-23 14:55 | disposition home or self-care (01) ==
LOC: M ED 12:12
DX: S61.215A Laceration without foreign body of left ring finger without damage to nail, initial encounter (principal); W26.8XXA Contact with other sharp object(s), not elsewhere classified, initial encounter; Y92.89 Other specified places as the place of occurrence of the external cause; Y93.89 Activity, other specified; Y99.0 Civilian activity done for income or pay; I25.10 Atherosclerotic heart disease of native coronary artery without angina pectoris; E11.9 Type 2 diabetes mellitus without complications; I10 Essential (primary) hypertension; F17.200 Nicotine dependence, unspecified, uncomplicated; Z88.8 Allergy status to other drugs, medicaments and biological substances; Z91.018 Allergy to other foods; Z79.82 Long term (current) use of aspirin; Z79.899 Other long term (current) drug therapy; Z79.4 Long term (current) use of insulin

== ENCOUNTER → 2024-09-01 | Outpatient (REF) | payer OTHER, BC ==
[~2024-09-01] MED LIST changes: +ASPI-226; +ATOR80TA59; +BISO10TA13; +CEPH500C PO; +DULA3PEN; +LANTINJ4; +LOSA50TA28; +OMEP-173; +PRAS10TA2
[2024-09-01 14:22] LABS: BLOOD UREA NITROGEN 17 MG/DL (9-23); CALCIUM LEVEL 9.9 MG/DL (8.5-10.1); CARBON DIOXIDE LEVEL 26 MMOL/L (20-31); CHLORIDE LEVEL 105 MMOL/L (98-107); CREATININE FOR GFR 0.93 MG/DL (0.70-1.30); GLOMERULAR FILTRATION RATE > 60.0 (>56); GLUCOSE, FASTING 121 MG/DL (60-100); POTASSIUM SERUM 4.7 MMOL/L (3.5-5.1); SODIUM LEVEL 138 MMOL/L (136-145)
[2024-09-05 14:26] LABS: PSA FREE 0.6 ng/mL; PSA TOTAL 1.2 ng/mL (< OR = 4.0)
== END ==
LOC: M LAB REF 13:32
PROVIDERS: ATTEND Physician Assistant
DX: E11.9 Type 2 diabetes mellitus without complications (principal); Z12.5 Encounter for screening for malignant neoplasm of prostate

== ENCOUNTER → 2025-01-04 | Outpatient (REF) | LOC: M CARPUL 12-01 09:34 | PROVIDERS: ATTEND Nurse Practitioner Adult Health | DX: Z02.1 Encounter for pre-employment examination (principal) ==

== ENCOUNTER → 2025-01-05 | Outpatient (CLI) | payer BC | LOC: M RAD 09:41 | PROVIDERS: ATTEND Physician Assistant | DX: R06.02 Shortness of breath (principal) ==

== ENCOUNTER → 2025-04-24 | Outpatient (RCR) ==
[~2025-04-24] MED LIST changes: -FLOM0.4C39 PO; +LISI40TA10 PO; -LISI40TA4 PO; +TAMS-18 PO
== END ==
LOC: M EMPSKH 04-09 07:18
PROVIDERS: ATTEND Family Medicine
DX: Z20.828 Contact with and (suspected) exposure to other viral communicable diseases (principal)

== ENCOUNTER → 2025-05-03 | Outpatient (REF) | payer BC ==
[2025-05-03 17:01] LABS: ALT/SGPT 30 U/L (7.0-40); AST/SGOT 28 U/L (<34); CALCIUM LEVEL 9.1 MG/DL (8.5-10.1); CARBON DIOXIDE LEVEL 23 MMOL/L (20-31); CHLORIDE LEVEL 106 MMOL/L (98-107); CREATININE FOR GFR 0.94 MG/DL (0.70-1.30); GLOMERULAR FILTRATION RATE > 90.0 (>56); POTASSIUM SERUM 4.2 MMOL/L (3.5-5.1); SODIUM LEVEL 140 MMOL/L (136-145)
[2025-05-03 17:08] LABS: BASO # 0.1 10^3/uL (0.0-0.2); BASO % 1.3 % (0.0-1.0); EOS # 0.2 10^3/uL (0.0-0.5); EOS % 1.7 % (0.0-3.0); LYMPH # 3.1 10^3/uL (1.5-5.0); LYMPH % 28.7 % (24.0-44.0); MONO # 0.9 10^3/uL (0.0-0.8); MONO % 8.1 % (2.0-8.0); NEUTROPHILS # 6.4 10^3/uL (1.5-8.5); NEUTROPHILS % 59.6 % (36.0-66.0); PLATELET COUNT, AUTOMATED 284 10^3/uL (150-450)
== END ==
LOC: M LAB REF 16:25
PROVIDERS: ATTEND Physician Assistant
DX: R11.10 Vomiting, unspecified (principal)

== ENCOUNTER → 2025-05-31 | Outpatient (CLI) | payer BC ==
[~2025-05-31] MED LIST changes: +ISOVUE-370 76% 100 ML VIAL ONE
== END ==
LOC: M PLAIMG 07:23
PROVIDERS: ATTEND Physician Assistant
DX: R13.10 Dysphagia, unspecified (principal)

== ENCOUNTER → 2025-07-04 | Outpatient (CLI) | payer BC ==
[~2025-07-04] MED LIST changes: -ISOVUE-370 76% 100 ML VIAL ONE
== END ==
LOC: M RAD 07:41
PROVIDERS: ATTEND Physician Assistant
DX: R11.10 Vomiting, unspecified (principal)

== ENCOUNTER → 2025-07-10 | Outpatient (CLI) | payer BC ==
[~2025-07-10] MED LIST changes: +E-Z-GAS II EFFERVESCENT PACKET (SODIUM BICARB./CITRIC ACID/SIMETHICONE) As Ordered ONE; +E-Z-HD 98% w/w 340 GM SUSP BTL As Ordered ONE; +E-Z-PAQUE 96% w/w SUSP 176 GM BTL As Ordered ONE
== END ==
LOC: M RAD 09:22
PROVIDERS: ATTEND Physician Assistant
DX: R11.10 Vomiting, unspecified (principal)

== ENCOUNTER → 2025-08-02 | Outpatient (CLI) | payer BC ==
[~2025-08-02] MED LIST changes: -E-Z-GAS II EFFERVESCENT PACKET (SODIUM BICARB./CITRIC ACID/SIMETHICONE) As Ordered ONE; -E-Z-HD 98% w/w 340 GM SUSP BTL As Ordered ONE; -E-Z-PAQUE 96% w/w SUSP 176 GM BTL As Ordered ONE
== END ==
LOC: M RAD 10:27
PROVIDERS: ATTEND Physician Assistant
DX: N28.1 Cyst of kidney, acquired (principal)